=== PATIENT | male | born 1955 | race Caucasian/White ===

== ENCOUNTER → 2020-07-18 | Outpatient (CLI) | payer MEDICARE ==
--- NOTE | 2020-07-18 14:24 | CT ---
EXAMINATION TYPE: CT abdomen pelvis wo con DATE OF EXAM: 07/18/2020 COMPARISON: HISTORY: 65-year-old male R93.41, Abnormality on US, tumor in bladder-per patient CT DLP: 688.0 mGycm. Automated exposure control for dose reduction was used. TECHNIQUE: Contiguous axial scanning of the abdomen and pelvis without IV contrast. Coronal and sagit nicolás reconstructions performed. FINDINGS: Heart normal size without pericardial effusion. Right atrial and right ventricular AICD leads. Three- vessel coronary artery calcifications are present. Mild centrilobular emphysema seen. Some patchy dependent opacity in the bilateral lungs probably patc hy areas of atelectasis. Small hiatal hernia. A couple calcified granulomas in the liver. No abnormal gallbladder distention. Noncontrast appearance of the adrenal glands, spleen, and pancreas within normal limits. Left-sided nephrolithiasis with approximately 8 calculi, largest measuring 8 mm. There is severe right-sided hydronephrosis and moderate hydroureter. There is a soft tissue mass within the posterior right bladder base measuring 7.8 cm AP by 5.9 cm crab picker niocaudal by 4.6 cm wide. 7 mm calculus at the right ureteral orifice which the mass obstructs. No dilated small bowel, free fluid, or free air. No mesenteric or retroperitoneal lymphadenopathy. Mild stool burden. Redundant sigmoid colon. No pericolonic inflammatory change. Tiny fatty umbilical hernia. Multiple pelvic phleboliths. Prostate gland measures 4.9 cm wide. Prominent bladder distention. No ab normal fluid collection in the pelvis or pelvic lymphadenopathy. Bones: Mild degenerative change of the hips. Facet arthropathy mid to lower lumbar spine with grade 1 anterolisthesis L4-L5. [facility] within the lower thoracic spine. IMPRESSION: 1. Obstruction of the right ureter secondary to a large 7.8 cm bladder mass located in the right pos terior bladder base. There is resultant severe right-sided hydronephrosis. A 7 mm calculus is impacte d in the right ureteral orifice, embedded within the soft tissue. 2. Left-sided nephrolithiasis with multiple calculi measuring up to 8 mm. 3. Mild COPD in the visualized lower lungs. CAD.
== END | disposition home or self-care (01) ==
LOC: RADCTMAIN 12:38
PROVIDERS: ATTEND Urology
DX: D49.4 Neoplasm of unspecified behavior of bladder (principal); N13.2 Hydronephrosis with renal and ureteral calculous obstruction; J44.9 Chronic obstructive pulmonary disease, unspecified
CPT/HCPCS: 74176

== ENCOUNTER 2021-02-27 08:45 | Inpatient (IN) | payer MEDICARE ==
[2021-02-27] MEDS ORDERED: DEXAMETHASONE SOD PHOSPHATE 10 MG/ML 1 ML VIAL IV STA (09:22)
--- NOTE | 2021-02-27 09:26 | ED ---
General Adult HPI - General Chief complaint: Shortness of Breath Stated complaint: JAVIER Time Seen by Provider: 02/27/21 08:48 Source: patient, EMS Mode of arrival: EMS Limitations: no limitations - History of Present Illness Initial comments: Dictation was produced using [employer] dictation software. please excuse any grammatical, word or spelling errors. Chief Complaint: 66-year-old male presents with cold symptoms for 6 days History of Present Illness: Patient is a 66-year-old male. He has past medical history of bladder cancer, coronary artery disease, dyslipidemia hypertension presents to the emergency department for worsening shortness of breath, weakness and loss of taste and smell. 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 He started to get symptoms 6 days ago. Since 6 days ago symptoms have been getting worse. EMS was called. Patient was hypoxic upon initial evaluation. Patient did not receive his vaccine for coronavirus due to issues surrounding his bladder cancer treatment. The ROS documented in this emergency department record has been reviewed and confirmed by me. Those systems with pertinent positive or negative responses have been documented in the HPI. All other systems are other negative and/or noncontributory. PHYSICAL EXAM: General Impression: Alert and oriented x3, not in acute distress HEENT: Normocephalic atraumatic, extra-ocular movements intact, pupils equal and reactive to light bilaterally, mucous membranes moist. Cardiovascular: Heart regular rate and rhythm Chest: Able to complete full sentences, no retractions, no tachypnea Abdomen: abdomen soft, non-tender, non-distended, no organomegaly Musculoskeletal: Pulses present and equal in all extremities, no peripheral edema Motor: no focal deficits noted Neurological: CN II-XII grossly intact, no focal motor or sensory deficits noted Skin: Intact with no visualized rashes Psych: Normal affect and mood ED course: 66-year-old male presents with symptoms of coronavirus. He has had positive sick exposures. Vital signs upon arrival shows 82% on room air, rest of vital signs within acceptable limits. Laboratory evaluation obtained. CBC, coag panel, metabolic panel ordered. CBC, coag panel is within acceptable limits. Slight elevation of renal riddle his creatinine of 1.56. Patient's coronavirus positive. Elevated inflammatory markers. Chest x-ray shows difficult to exclude pneumonia. Click or presentation consistent with COVID-19 with hypoxic respiratory failure. Patient's oxygen levels are improved with high flow nasal cannula. Patient will be admitted patient given Decadron. Patient be admitted to Dr. Goldberg with consultation to pulmonology. EKG interpretation: Ventricular rate 75, normal sinus rhythm,. Interval 146, QRS 80, QTc 431. No AK prolongation, no QTC prolongation, no ST or T-wave changes noted. Overall, this EKG is unremarkable - Related Data Home Medications Medication Instructions Recorded Confirmed Ascorbic Acid [Vitamin C] 1,000 mg PO DAILY 02/27/21 02/27/21 Aspirin EC [Ecotrin Low Dose] 81 mg PO DAILY 02/27/21 02/27/21 Carvedilol [Coreg] 12.5 mg PO BID 02/27/21 02/27/21 Cholecalciferol [Vitamin D3 (125 125 mcg PO DAILY 02/27/21 02/27/21 Mcg = 5000 Iu)] Lisinopril [Prinivil] 10 mg PO DAILY 02/27/21 02/27/21 Multivitamins, Thera [Multivitamin 1 tab PO DAILY 02/27/21 02/27/21 (formulary)] Warfarin [Coumadin] 2.5 mg PO HS 02/27/21 02/27/21 Zinc 50 mg PO DAILY 02/27/21 02/27/21 Allergies Allergy/AdvReac Type Severity Reaction Status Date / Time No Known Allergies Allergy Verified 02/27/21 10:13 Review of Systems ROS Statement: Those systems with pertinent positive or pertinent negative responses have been documented in the HPI. ROS Other: All systems not noted in ROS Statement are negative. Past Medical History Past Medical History: Coronary Artery Disease (CAD), Cancer, Hyperlipidemia, Hypertension, Myocardial Infarction ([place]) Additional Past Medical History / Comment(s): Pt recently admitted to [facility] on 01/26/16 with STEMI he was discharged and a life vest was placed the next day. Other HX: Recent L ankle fx which healed on its own-little discomfort now. Bladder cancer Last Myocardial Infarction Date:: 01/26/16 History of Any Multi-Drug Resistant Organisms: None Reported Past Surgical History: Bladder Surgery, Heart Catheterization With Stent, Orthopedic Surgery Additional Past Surgical History / Comment(s): 01/26/16 cardiac cath with stents to LAD, past L arm fx with surgical repair. Past Anesthesia/Blood Transfusion Reactions: No Reported Reaction Date of Last Stent Placement:: 01/26/16 Past Psychological History: No Psychological Hx Reported Smoking Status: Former smoker Past Alcohol Use History: None Reported Past Drug Use History: None Reported - Past Family History Father Family Medical History: Coronary Artery Disease (CAD), Hyperlipidemia Mother Family Medical History: GERD/Reflux Additional Family Medical History / Comment(s): Mother had a serious MVA in he mid 50's and had complications with her health mostly related to that. She at the age of 78yrs. General Exam Limitations: no limitations Course Vital Signs 02/27/21 02/27/21 02/27/21 08:50 09:07 09:10 Temperature 98.4 F Pulse Rate 78 73 Respiratory 18 18 Rate Blood Pressure 135/86 O2 Sat by Pulse 82 L 92 L Oximetry 02/27/21 09:57 Temperature Pulse Rate 73 Respiratory 16 Rate Blood Pressure 120/81 O2 Sat by Pulse 95 Oximetry Medical Decision Making - Lab Data Result diagrams: 02/27/21 09:24 02/27/21 09:24 Lab Results 02/27/21 02/27/21 02/27/21 Range/Units 09:24 09:24 09:24 WBC 4.0 (3.8-10.6) k/uL RBC 5.42 (4.30-5.90) m/uL Hgb 13.9 (13.0-17.5) gm/dL Hct 42.2 (39.0-53.0) % MCV 78.0 L (80.0-100.0) fL MCH 25.6 (25.0-35.0) pg MCHC 32.9 (31.0-37.0) g/dL RDW 15.0 (11.5-15.5) % Plt Count 190 (150-450) k/uL MPV 8.9 Neutrophils % 85 % Lymphocytes % 9 % Monocytes % 5 % Eosinophils % 0 % Basophils % 0 % Neutrophils # 3.4 (1.3-7.7) k/uL Lymphocytes # 0.3 L (1.0-4.8) k/uL Monocytes # 0.2 (0-1.0) k/uL Eosinophils # 0.0 (0-0.7) k/uL Basophils # 0.0 (0-0.2) k/uL PT 11.6 (9.0-12.0) sec INR 1.1 (<1.2) APTT 28.3 (22.0-30.0) sec Sodium 141 (137-145) mmol/L Potassium 4.2 (3.5-5.1) mmol/L Chloride 105 (98-107) mmol/L Carbon Dioxide 24 (22-30) mmol/L Anion Gap 12 mmol/L BUN 64 H (9-20) mg/dL Creatinine 1.56 H (0.66-1.25) mg/dL Est GFR (CKD-EPI)AfAm 52 (>60 ml/min/1.73 sqM) Est GFR (CKD-EPI)NonAf 45 (>60 ml/min/1.73 sqM) Glucose 120 H (74-99) mg/dL Plasma Lactic Acid Damon (0.7-2.0) mmol/L Calcium 8.8 (8.4-10.2) mg/dL Magnesium 2.6 H (1.6-2.3) mg/dL Total Bilirubin 0.7 (0.2-1.3) mg/dL AST 77 H (17-59) U/L ALT 27 (4-49) U/L Alkaline Phosphatase 124 (38-126) U/L Lactate Dehydrogenase 1378 H (313-618) U/L C-Reactive Protein 5.3 H (<1.0) mg/dL Total Protein 7.5 (6.3-8.2) g/dL Albumin 3.7 (3.5-5.0) g/dL Coronavirus (PCR) (Not Detectd) 02/27/21 02/27/21 Range/Units 09:24 09:24 WBC (3.8-10.6) k/uL RBC (4.30-5.90) m/uL Hgb (13.0-17.5) gm/dL Hct (39.0-53.0) % MCV (80.0-100.0) fL MCH (25.0-35.0) pg MCHC (31.0-37.0) g/dL RDW (11.5-15.5) % Plt Count (150-450) k/uL MPV Neutrophils % % Lymphocytes % % Monocytes % % Eosinophils % % Basophils % % Neutrophils # (1.3-7.7) k/uL Lymphocytes # (1.0-4.8) k/uL Monocytes # (0-1.0) k/uL Eosinophils # (0-0.7) k/uL Basophils # (0-0.2) k/uL PT (9.0-12.0) sec INR (<1.2) APTT (22.0-30.0) sec Sodium (137-145) mmol/L Potassium (3.5-5.1) mmol/L Chloride (98-107) mmol/L Carbon Dioxide (22-30) mmol/L Anion Gap mmol/L BUN (9-20) mg/dL Creatinine (0.66-1.25) mg/dL Est GFR (CKD-EPI)AfAm (>60 ml/min/1.73 sqM) Est GFR (CKD-EPI)NonAf (>60 ml/min/1.73 sqM) Glucose (74-99) mg/dL Plasma Lactic Acid Damon 1.3 (0.7-2.0) mmol/L Calcium (8.4-10.2) mg/dL Magnesium (1.6-2.3) mg/dL Total Bilirubin (0.2-1.3) mg/dL AST (17-59) U/L ALT (4-49) U/L Alkaline Phosphatase (38-126) U/L Lactate Dehydrogenase (313-618) U/L C-Reactive Protein (<1.0) mg/dL Total Protein (6.3-8.2) g/dL Albumin (3.5-5.0) g/dL Coronavirus (PCR) Detected A (Not Detectd) Critical Care Time Critical Care Time: Yes Total Critical Care Time: 33 Disposition Clinical Impression: COVID-19 Disposition: ADMITTED IP TO THIS [facility] Condition: Critical Referrals: Shai Peña MD [Primary Care Provider] - 1-2 days
[2021-02-27 09:53] LABS: Basophils % (A) 0 %; Eosinophils % (A) 0 %; HCT 42.2 % (39.0-53.0); HGB 13.9 gm/dL (13.0-17.5); Lymphocytes # (A) 0.3 k/uL (1.0-4.8); Lymphocytes % (A) 9 %; MCH 25.6 pg (25.0-35.0); MCHC 32.9 g/dL (31.0-37.0); Mean Platelet Volume 8.9; Monocytes # (A) 0.2 k/uL (0-1.0); Monocytes % (A) 5 %; Neutrophils # (A) 3.4 k/uL (1.3-7.7); Neutrophils % (A) 85 %; Platelet Count 190 k/uL (150-450); RBC 5.42 m/uL (4.30-5.90)
[2021-02-27 09:58] LABS: Albumin 3.7 g/dL (3.5-5.0); Calcium 8.8 mg/dL (8.4-10.2); INR 1.1 (<1.2); Magnesium 2.6 mg/dL (1.6-2.3); Partial Thromboplastin Time 28.3 sec (22.0-30.0); Potassium 4.2 mmol/L (3.5-5.1); Prothrombin Time 11.6 sec (9.0-12.0); Total Bilirubin 0.7 mg/dL (0.2-1.3); Total Protein 7.5 g/dL (6.3-8.2)
--- NOTE | 2021-02-27 10:41 | XR ---
EXAMINATION TYPE: XR chest 1V portable DATE OF EXAM: 02/27/2021 COMPARISON: Chest x-ray dated 02/25/2016 HISTORY: Suspected covid 19 pneumonia, abnormal chest x-ray TECHNIQUE: Single frontal view of the chest is obtained. FINDINGS: Lung volumes are low and the patient is rotated. Question some patchy bilateral airspace d isease. There is no pleural effusion or pneumothorax seen. The cardiac silhouette size is stable, he art is enlarged, mediastinum appears widened, prominence of pulmonary artery may be indicative of pul monary artery hypertension. Interstitium is increased. There are overlying artifacts. There is a gene rator in the left pectoral region, leads are present in the right atrium and ventricle as on prior. A vineet is dense. The osseous structures are intact. IMPRESSION: Difficult to exclude pneumonia, there may be a component of pulmonary venous hypertensio n and early gestational edema, correlate
[2021-02-27 10:42] LABS: C Reactive Protein 5.3 mg/dL (<1.0)
[2021-02-27] MEDS ORDERED: ACETAMINOPHEN TAB 500 MG TAB PO STA (10:50)
[2021-02-27] MEDS ORDERED: NALOXONE 0.4 MG/ML 1 ML VIAL IV PRN (11:33)
[2021-02-27] MEDS ORDERED: ACETAMINOPHEN TAB 325 MG TAB PO PRN (11:33)
[2021-02-27] MEDS ORDERED: ONDANSETRON 4 MG/2 ML VIAL IVP PRN (11:33)
[2021-02-27] MEDS ORDERED: SODIUM CHLORIDE 0.9% 1,000 ML IV SCH (11:45)
[2021-02-27] MEDS ORDERED: ENOXAPARIN 40 MG/0.4 ML SYRINGE SQ SCH (11:45)
[2021-02-27] MEDS: SODIUM CHLORIDE 0.45% 1,000 ML IV SCH (14:47)
[2021-02-27] MEDS: ASCORBIC ACID 500 MG TAB PO SCH (14:48)
[2021-02-27] MEDS: ASPIRIN 81 MG PO SCH (14:48)
[2021-02-27] MEDS: ZINC SULFATE 220 MG CAP PO SCH (14:48)
--- NOTE | 2021-02-27 15:09 | P.HPIM ---
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 Chronic stable medical conditions include hypertension, hyperlipidemia, CAD with stent to LAD in 2016. Bladder cancer that was treated with surgery. Patient presents with 6 days of cough shortness of breath headache. Poor appetite. Tired rundown. Diarrhea that is slightly better. Loss of smell and taste. Chills. Patient has did not receive the vaccine for COVID-19. Review of systems: GEN.: Tired, loss of appetite EYES: None HEENT: Loss of smell and taste NECK: None RESPIRATORY: Short of breath CARDIOVASCULAR: None GASTROINTESTINAL: Diarrhea and that somewhat better GENITOURINARY: None MUSCULOSKELETAL: None LYMPHATICS: None HEMATOLOGICAL: None PSYCHIATRY: None NEUROLOGICAL: None Past medical history to include: Hyperlipidemia, hypertension, CAD with stent to LAD in 2016, bladder cancer treated with surgery Social history: Patient started smoking 33 years ago. Smoked started age of 13. No alcohol. 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 Family history: CAD, hyperlipidemia Physical examination: VITAL SIGNS: 98.4, 78, 18, 135/86, 82% on room air GENERAL: BMI 28, reclining in bed, awake, tired. EYES: Pupils equal. Conjunctiva normal. HEENT: External appearance of nose and ears normal, oral cavity grossly normal. NECK: JVD not raised; masses not palpable. HEART: First and second heart sounds are normal; no edema. LUNGS: Respiratory rate increased, decreased breaths on occasional crackles. ABDOMEN: Soft, nontender, liver spleen not palpable, no masses palpable. PSYCH: Alert and oriented x3; mood and affect normal. NEUROLOGICAL: Cranial nerves grossly intact; no facial asymmetry, power and sensation grossly intact. LYMPHATICS: No lymph nodes palpable in the axilla and neck INVESTIGATIONS, reviewed in the clinical context: White count 4 hemoglobin 13.9 platelets 190 lymphocytes 0.3 sodium 141 potassium 4.2 and 64 creatinine 1.56 LDH 1378 CRP 5.3 Coronavirus [PCR]: Detected EKG tracing personally reviewed by me-normal sinus rhythm. LVH. Nonspecific T- wave changes. Chest x-ray film: Bilateral infiltrates Assessment and plan: -Acute bilateral COVID 19 pneumonitis and the patient did not receive the v accine for the same. Dexamethasone 6 mg, continue Coumadin, vitamin C vitamin D zinc. Pulmonary con sulted. -Acute severe hypoxic respiratory failure from COVID 19 pneumonitis. Oxygen 15 L currently. -Acute medical debility/asthenia from COVID 19. Activity as tolerated. -Clinical dehydration from decreased oral intake IV fluids -Acute kidney injury from decreased oral intake and diarrhea. Suspect prerenal IV fluids. Renal ultrasound. Check UA. Hold Prinivil -Paroxysmal atrial fibrillation, currently sinus rhythm Telemetry -Coumadin monitoring Follow INR per pharmacy -CAD with stent to LAD in 2016 Coreg 6.25 by mouth twice a day, aspirin 81 mg daily -Ageusia and anosmia from COVID 19 Dexamethasone. Think. Vitamin C. Vitamin D. IV fluids. Follow labs. Renal ultrasound. UA. Cutback Coreg dose to 6.25 twice a day because of lower blood pressure. Care was discussed with the patient question also. Follow INR level. Given the complexity and severity of patient's condition expect the patient to be in the hospital at least for 2 overnights Past Medical History Past Medical History: Coronary Artery Disease (CAD), Cancer, Hyperlipidemia, Hypertension, Myocardial Infarction ([place]) Additional Past Medical History / Comment(s): Pt recently admitted to [facility] on 01/26/16 with STEMI he was discharged and a life vest was placed the next day. Other HX: Recent L ankle fx which healed on its own-little discomfort now. Bladder cancer Last Myocardial Infarction Date:: 01/26/16 History of Any Multi-Drug Resistant Organisms: None Reported Past Surgical History: Bladder Surgery, Heart Catheterization With Stent, Orthopedic Surgery Additional Past Surgical History / Comment(s): 01/26/16 cardiac cath with stents to LAD, past L arm fx with surgical repair. Past Anesthesia/Blood Transfusion Reactions: No Reported Reaction Date of Last Stent Placement:: 01/26/16 Past Psychological History: No Psychological Hx Reported Smoking Status: Former smoker Past Alcohol Use History: None Reported Past Drug Use History: None Reported - Past Family History Father Family Medical History: Coronary Artery Disease (CAD), Hyperlipidemia Mother Family Medical History: GERD/Reflux Additional Family Medical History / Comment(s): Mother had a serious MVA in he mid 50's and had complications with her health mostly related to that. She at the age of 78yrs. Medications and Allergies Home Medications Medication Instructions Recorded Confirmed Type Ascorbic Acid [Vitamin C] 1,000 mg PO DAILY 02/27/21 02/27/21 History Aspirin EC [Ecotrin Low Dose] 81 mg PO DAILY 02/27/21 02/27/21 History Carvedilol [Coreg] 12.5 mg PO BID 02/27/21 02/27/21 History Cholecalciferol [Vitamin D3 (125 125 mcg PO DAILY 02/27/21 02/27/21 History Mcg = 5000 Iu)] Lisinopril [Prinivil] 10 mg PO DAILY 02/27/21 02/27/21 History Multivitamins, Thera [Multivitamin 1 tab PO DAILY 02/27/21 02/27/21 History (formulary)] Warfarin [Coumadin] 2.5 mg PO HS 02/27/21 02/27/21 History Zinc 50 mg PO DAILY 02/27/21 02/27/21 History Allergies Allergy/AdvReac Type Severity Reaction Status Date / Time No Known Allergies Allergy Verified 02/27/21 10:13 Physical Exam Vitals: Vital Signs Temp Pulse Resp BP Pulse Ox 02/27/21 14:54 82 16 121/84 90 L 02/27/21 12:12 70 16 115/78 94 L 02/27/21 09:57 73 16 120/81 95 02/27/21 09:10 18 02/27/21 09:07 73 92 L 02/27/21 08:50 98.4 F 78 18 135/86 82 L Intake and Output 02/27/21 02/27/21 02/27/21 06:59 14:59 22:59 Other: Weight 88.451 kg Results CBC & Chem 7: 02/27/21 09:24 02/27/21 09:24 Labs: Abnormal Lab Results - Last 24 Hours (Table) 02/27/21 02/27/21 02/27/21 Range/Units 09:24 09:24 09:24 MCV 78.0 L (80.0-100.0) fL Lymphocytes # 0.3 L (1.0-4.8) k/uL BUN 64 H (9-20) mg/dL Creatinine 1.56 H (0.66-1.25) mg/dL Glucose 120 H (74-99) mg/dL Magnesium 2.6 H (1.6-2.3) mg/dL AST 77 H (17-59) U/L Lactate Dehydrogenase 1378 H (313-618) U/L C-Reactive Protein 5.3 H (<1.0) mg/dL Coronavirus (PCR) Detected A (Not Detectd)
--- NOTE | 2021-02-27 16:07 | US ---
EXAMINATION TYPE: US kidneys/renal and bladder DATE OF EXAM: 02/27/2021 COMPARISON: CT 07/18/2020 CLINICAL HISTORY: SONIA. Bladder cancer EXAM MEASUREMENTS: Right Kidney: 10.4 x 4.4 x 6.22 cm Left Kidney: 11.7 x 6.7 x 6.0 cm Right Kidney: hydronephrosis is mild Left Kidney: No hydronephrosis or masses seen Bladder: wnl Bilateral Jets seen: Yes Cortical medullary differentiation is maintained. Question an echogenic focus within the left kidney. No masses are identified. The urinary bladder is anechoic. Bilateral ureteral jets are seen. IMPRESSION: Mild right hydronephrosis, question left-sided nephrolithiasis
[2021-02-27] MEDS: carvediloL 6.25 MG TAB PO SCH (16:55)
[2021-02-27] MEDS: CHOLECALCIFEROL 125 MCG (5000 IU) TABLET PO SCH (16:55)
[2021-02-27 17:13] LABS: Amorphous Sediment,Urine Rare /hpf; Appearance,Urine Cloudy (Clear); Bilirubin,Urine Negative (Negative); Blood,Urine Moderate (Negative); Budding Yeast,Urine Occasional /hpf; Color,Urine Yellow; Glucose,Urine (UA) Negative (Negative); Ketones,Urine Trace (Negative); Leukocyte Esterase,Urine Moderate (Negative); Mucus,Urine Rare /hpf; Nitrite,Urine Negative (Negative); PH, Urine 5.5 (5.0-8.0); Protein,Urine 2+ (Negative); RBC,Urine 102 /hpf (0-5); Specific Gravity,Urine 1.019 (1.001-1.035); Squamous Epithelial Cell,Urine <1 /hpf (0-4); Urobilinogen,Urine <2.0 mg/dL (<2.0); WBC,Urine 47 /hpf (0-5)
[2021-02-27] MEDS ORDERED: WARFARIN 5 MG TAB PO ONE (18:00)
[2021-02-28] MEDS: carvediloL 6.25 MG TAB PO SCH (06:22)
[2021-02-28] MEDS: SODIUM CHLORIDE 0.45% 1,000 ML IV SCH ×3 (06:22→21:04)
[2021-02-28] MEDS: ASCORBIC ACID 500 MG TAB PO SCH (07:59)
[2021-02-28] MEDS: CHOLECALCIFEROL 125 MCG (5000 IU) TABLET PO SCH (07:59)
[2021-02-28] MEDS: ASPIRIN 81 MG PO SCH (07:59)
[2021-02-28] MEDS: dexAMETHasone 2 MG TAB PO SCH (07:59)
[2021-02-28] MEDS: ZINC SULFATE 220 MG CAP PO SCH (07:59)
[2021-02-28 08:15] LABS: INR 1.3 (<1.2); Prothrombin Time 13.4 sec (9.0-12.0)
[2021-02-28 08:36] LABS: C Reactive Protein 3.7 mg/dL (<1.0); Calcium 8.8 mg/dL (8.4-10.2); Potassium 4.8 mmol/L (3.5-5.1)
[2021-02-28] MEDS ORDERED: carvediloL 6.25 MG TAB PO STA (09:59)
[2021-02-28] MEDS: DILTIAZEM 125 MG in SODIUM CHLORIDE 0.9% 100 ML IV SCH (10:56)
[2021-02-28] MEDS ORDERED: FAMOTIDINE 20 MG/2 ML VIAL IV SCH (11:15)
--- NOTE | 2021-02-28 11:23 | P.PN ---
Subjective From records This is a pleasant 66-year-old patient of Dr. Peña. 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 Chronic stable medical conditions include hypertension, hyperlipidemia, CAD with stent to LAD in 2016. Bladder cancer that was treated with surgery. Patient presents with 6 days of cough shortness of breath headache. Poor appetite. Tired rundown. Diarrhea that is slightly better. Loss of smell and taste. Chills. Patient has did not receive the vaccine for COVID-19. Subjective 02/28/2021 This is a pleasant 66 years old male with multiple medical problems including hypertension, hyperlipidemia, coronary artery disease status post PCI to LAD in 2016, history of bladder cancer status post surgery He presents with respiratory symptoms and found to have Covid pneumonia and hypoxia. Also has acute kidney injury with creatinine improving down to 1.3 while he is on normal saline at 100 mL per hour. He made about 650 milliliters of urine today this morning and I asked the nurse to check a bladder scan. He has no Richards catheter. This morning also his course was complicated by A. fib and RVR, his already on warfarin. Cardizem drip was started and coordinator of evaluation consulted He has elevated LDH and C-reactive protein 1378 and 5.3. He is hypoxic at 50 L oxygen via nasal cannula. Chest x-ray showed diffuse bilateral pneumonia and his covid test positive. He has negative d-dimer test at 0.34. Renal ultrasound showing mild right hydronephrosis with left sided nephrolithiasis. Priorcalcitonin is mildly elevated at 0.11. Urinalysis is abnormal suspicious for infection however patient denies any symptoms. No suprapubic tenderness. We will keep monitoring for now and patient is not on any antibiotic. His daughter is a nurse at [facility] [facility] he wanted to be transferred however when I talked to the patient he didn't want to go to [facility] and he wanted to wait in this facility Review of systems CONSTITUTIONAL: No fever, no malaise, no fatigue. HEENT: No recent visual problems or hearing problems. Denied any sore throat. CARDIOVASCULAR: No orthopnea, PND, no palpitations, no syncope. PULMONARY: No chest wall tenderness, no hemoptysis. GASTROINTESTINAL: No diarrhea, no nausea, no vomiting, no abdominal pain. Normoactive bowel sounds. NEUROLOGICAL: No headaches, no weakness, no numbness. Active Medications Generic Name Dose Route Start Last Admin Trade Name Alcidesq PRN Reason Stop Dose Admin Acetaminophen 650 mg 02/27/21 11:33 Acetaminophen Tab 325 Mg Tab PO Q6HR PRN Mild Pain or Fever > 100.5 Ascorbic Acid 1,000 mg 02/27/21 14:00 02/28/21 07:59 Ascorbic Acid 500 Mg Tab PO 1,000 mg DAILY ARMANDO Administration Aspirin 81 mg 02/27/21 14:00 02/28/21 07:59 Aspirin 81 Mg PO 81 mg DAILY ARMANDO Administration Carvedilol 12.5 mg 02/28/21 17:30 Carvedilol 12.5 Mg Tab PO BID-W/MEALS ARMANDO Cholecalciferol 125 mcg 02/27/21 14:00 02/28/21 07:59 Cholecalciferol 125 Mcg (5000 Iu) Tablet PO 125 mcg DAILY ARMANDO Administration Dexamethasone 6 mg 02/28/21 09:00 02/28/21 07:59 Dexamethasone 2 Mg Tab PO 6 mg DAILY ARMANDO Administration Famotidine 20 mg 02/28/21 11:15 Famotidine 20 Mg/2 Ml Vial IV Q12HR ARMANDO Sodium Chloride 1,000 mls @ 100 mls/hr 02/27/21 14:15 02/28/21 06:22 Saline 0.45% IV 100 mls/hr .Q10H ARMANDO Administration Diltiazem HCl 125 mg/ Sodium 125 mls @ 5 mls/hr 02/28/21 10:30 02/28/21 10:56 Chloride IV 5 mg/hr .Q24H ARMANDO 5 mls/hr Administration 5 MG/HR Miscellaneous Information 1 each 02/27/21 14:11 Warfarin Per Pharmacy MISCELLANE DIRECTED PRN Per Protocol Protocol Naloxone HCl 0.2 mg 02/27/21 11:33 Naloxone 0.4 Mg/Ml 1 Ml Vial IV Q2M PRN Opioid Reversal Ondansetron HCl 4 mg 02/27/21 11:33 Ondansetron 4 Mg/2 Ml Vial IVP Q8HR PRN Nausea And Vomiting Warfarin Sodium 5 mg 02/28/21 18:00 Warfarin 5 Mg Tab PO 02/28/21 18:01 ONCE ONE Protocol Zinc Sulfate 220 mg 02/27/21 14:00 02/28/21 07:59 Zinc Sulfate 220 Mg Cap PO 220 mg DAILY ARMANDO Administration Objective - Vital Signs Vital signs: Vital Signs Temp 97.6 F 02/28/21 08:00 Pulse 76 02/28/21 08:00 Resp 21 02/28/21 08:00 BP 130/68 02/28/21 08:00 Pulse Ox 90 L 02/28/21 08:00 Intake & Output 02/27/21 02/28/21 02/28/21 18:59 06:59 18:59 Intake Total 600 Output Total 650 Balance -50 Weight 88.451 kg 83.5 kg Intake: Oral 600 Output: Urine 650 - Labs CBC & Chem 7: 02/27/21 09:24 02/28/21 07:42 Labs: Abnormal Lab Results - Last 24 Hours (Table) 02/27/21 02/27/21 02/27/21 Range/Units 09:24 09:24 16:50 PT (9.0-12.0) sec INR (<1.2) BUN (9-20) mg/dL Creatinine (0.66-1.25) mg/dL Glucose (74-99) mg/dL Ferritin 758.0 H (22.0-322.0) ng/mL C-Reactive Protein (<1.0) mg/dL Procalcitonin 0.11 H (0.02-0.09) ng/mL Urine Protein 2+ H (Negative) Urine Ketones Trace H (Negative) Urine Blood Moderate H (Negative) Ur Leukocyte Esterase Moderate H (Negative) Urine RBC 102 H (0-5) /hpf Urine WBC 47 H (0-5) /hpf Amorphous Sediment Rare H (None) /hpf Urine Mucus Rare H (None) /hpf Urine Yeast (Budding) Occasional H (None) /hpf 02/28/21 02/28/21 Range/Units 07:42 07:42 PT 13.4 H (9.0-12.0) sec INR 1.3 H (<1.2) BUN 63 H (9-20) mg/dL Creatinine 1.30 H (0.66-1.25) mg/dL Glucose 156 H (74-99) mg/dL Ferritin (22.0-322.0) ng/mL C-Reactive Protein 3.7 H (<1.0) mg/dL Procalcitonin (0.02-0.09) ng/mL Urine Protein (Negative) Urine Ketones (Negative) Urine Blood (Negative) Ur Leukocyte Esterase (Negative) Urine RBC (0-5) /hpf Urine WBC (0-5) /hpf Amorphous Sediment (None) /hpf Urine Mucus (None) /hpf Urine Yeast (Budding) (None) /hpf Assessment and Plan Assessment: Bilateral Covid pneumonia Acute hypoxic respiratory failure Increased inflammatory markers A. fib and RVR, he is already on warfarin Acute kidney injury, improving Abnormal urine analysis but patient is as symptomatic suspicious for asymptomatic bacteriuria Hypertension Hyperlipidemia coronary artery disease status post PCI to LAD in 2016 history of bladder cancer status post surgery Plan: This is a pleasant 66 years old male who presents with covid pneumonia and hypoxia Continue with dexamethasone Continue with vitamin C, vitamin D and zinc Pulmonary consult Cardizem drip, cardiology consult Check a bladder scan, follow-up creatinine. Labs and medication were reviewed.. Continue same treatment. Continue with symptomatic treatment. Resume home medication. Monitor lytes and vitals. DVT and GI prophylaxis. Further recommendationsas per clinical course of the patient DVT prophylaxis: Hs is on warfarin GI Prophylaxis: Pepcid Prognosis is guarded
--- NOTE | 2021-02-28 13:20 | P.CRDCN ---
History of Present Illness History of present illness: HISTORY OF PRESENTING ILLNESS This is a pleasant 66-year-old male past medical history significant for coronary artery disease status post PCI LAD in 2016, ischemic cardiomyopathy with severe LV dysfunction, paroxysmal atrial fibrillation (on coumadin), sick sinus syndrome status post dual-chamber ICD placement in 2016, hypertension, dyslipidemia, bladder cancer. He follows in the office with Dr. Cruz. We have been asked to see in consultation for atrial fibrillation with rapid ventricular response. Patient presents to the emergency room in 02/27/21 with complaints of shortness of breath, generalized tiredness/weakness, loss of taste and smell, diarrhea, cough, chills. Patient found to be COVID-19 positive. He did not receive his vaccines. On admission patient in sinus rhythm however this morning patient went atrial fibrillation with rapid ventricular response heart rates in the [id number]. At home patient takes 12.5mg BID carvedilol, started on 6.25mg BID here, no evidence of hypotension. DIAGNOSTICS EKG reveals on admission revealed normal sinus rhythm, heart 75, T wave inversions in leads III, aVF, V2, V4. Prior EKG was similar findings Telemetry tracings indicate atrial fibrillation with uncontrolled ventricular rates HR 130s Chest xray difficult to exclude pneumonia. Laboratory reviewed, CBC unremarkable, d-dimer negative, INR 1.3, sodium 139, potassium 4.8, BUN 63, sCr 1.30, COVID-19 PCr positive Current home medications include warfarin 2.5 mg daily, lisinopril 10 mg daily, carvedilol 12.5 mg twice a day, [id number] daily Most recent echocardiogram 12/2019 revealed an EF of 45%, mild concentric hypertrophy, mild mitral regurgitation, mild tricuspid regurgitation. REVIEW OF SYSTEMS At the time of my exam: CONSTITUTIONAL: +Fever +chills CARDIOVASCULAR: Positive shortness of breath Denies chest pain, orthopnea, PND or palpitations. RESPIRATORY: Positive cough GASTROINTESTINAL: Positive diarrhea Denies abdominal pain, constipation, nausea or vomiting. MUSCULOSKELETAL: Denies myalgias. NEUROLOGIC: Denies numbness, tingling, headacbe or weakness. ENDOCRINE: Denies fatigue, weight change, polydipsia or polyurina. GENITOURINARY: Denies burning, hematuria or urgency with micturation. HEMATOLOGIC: Denies history of anemia or bleeding. PHYSICAL EXAMINATION Vitals blood pressure 137/70, heart rate 120, afebrile, oxygen saturation is 94% requiring 15 L high flow nasal cannula Full physical exam not completed due to COVID-19 exposure CONSTITUTIONAL: Short of breath NEUROLOGIC EXAMINATION: Patient is awake, alert and oriented x3. ASSESSMENT Paroxysmal atrial fibrillation with rapid ventricular response -[id number] score recommends anticoagulation, patient on Coumadin COVID-19 pneumonia Acute hypoxic respiratory failure Acute kidney injury Subtherapeutic INR Coronary artery disease status post LAD in 2016 PLAN -Increase patient's beta silvana back to home dose of 12.5mg BID -Ok to start Cardizem at 5mg/hr, wean as tolerated -Continue coumadin for anticoagulation, possibly might need bridging from heparin to coumadin for therapeutic INR -Daily PT/INR -Continue home cardiac medications -Further recommendations based on clinical course Nurse Practitioner note has been reviewed, I agree with a documented findings a nd plan of care. Patient was seen and examined. Past Medical History Past Medical History: Coronary Artery Disease (CAD), Cancer, Hyperlipidemia, Hypertension, Myocardial Infarction ([place]) Additional Past Medical History / Comment(s): Pt admitted to [facility] on 01/26/16 with STEMI he was discharged and a life vest was placed the next day. Pt now has AICD/Pacer. Other HX: L ankle fx which healed on its own. Bladder cancer Last Myocardial Infarction Date:: 01/26/16 History of Any Multi-Drug Resistant Organisms: None Reported Past Surgical History: Bladder Surgery, Heart Catheterization With Stent, Orthopedic Surgery Additional Past Surgical History / Comment(s): 01/26/16 cardiac cath with stents to LAD, past L arm fx with surgical repair. Multiple Bladder surgeries at [facility] for bladder cancer treatment Past Anesthesia/Blood Transfusion Reactions: No Reported Reaction Date of Last Stent Placement:: 01/26/16 Smoking Status: Former smoker - Past Family History Father Family Medical History: Coronary Artery Disease (CAD), Hyperlipidemia Mother Family Medical History: GERD/Reflux Additional Family Medical History / Comment(s): Mother had a serious MVA in he mid 50's and had complications with her health mostly related to that. She at the age of 78yrs. Medications and Allergies Home Medications Medication Instructions Recorded Confirmed Type Ascorbic Acid [Vitamin C] 1,000 mg PO DAILY 02/27/21 02/27/21 History Aspirin EC [Ecotrin Low Dose] 81 mg PO DAILY 02/27/21 02/27/21 History Carvedilol [Coreg] 12.5 mg PO BID 02/27/21 02/27/21 History Cholecalciferol [Vitamin D3 (125 125 mcg PO DAILY 02/27/21 02/27/21 History Mcg = 5000 Iu)] Lisinopril [Prinivil] 10 mg PO DAILY 02/27/21 02/27/21 History Multivitamins, Thera [Multivitamin 1 tab PO DAILY 02/27/21 02/27/21 History (formulary)] Warfarin [Coumadin] 2.5 mg PO HS 02/27/21 02/27/21 History Zinc 50 mg PO DAILY 02/27/21 02/27/21 History Allergies Allergy/AdvReac Type Severity Reaction Status Date / Time No Known Allergies Allergy Verified 02/27/21 10:13 Physical Exam Vitals: Vital Signs Temp Pulse Pulse Resp BP BP Pulse Ox 02/28/21 12:00 97.7 F 120 H 21 137/70 95 02/28/21 08:00 97.6 F 76 21 130/68 90 L 02/28/21 07:58 87 L 02/28/21 04:00 97.6 F 67 20 140/73 96 02/28/21 02:00 64 22 02/28/21 00:00 97.7 F 64 22 131/81 88 L 02/27/21 21:51 97.6 F 67 20 152/80 90 L 02/27/21 20:00 67 20 02/27/21 19:00 69 14 117/84 91 L 02/27/21 18:00 75 16 126/79 96 02/27/21 14:54 82 16 121/84 90 L Intake and Output 02/27/21 02/28/21 02/28/21 22:59 06:59 14:59 Intake Total 120 480 Output Total 650 Balance 120 -170 Intake: Oral 120 480 Output: Urine 650 Other: Voiding Method Urinal Weight 88.451 kg 83.5 kg Results 02/27/21 09:24 02/28/21 07:42 Coagulation 02/28/21 Range/Units 07:42 PT 13.4 H (9.0-12.0) sec Comprehensive Metabolic Panel 02/28/21 Range/Units 07:42 Sodium 139 (137-145) mmol/L Potassium 4.8 (3.5-5.1) mmol/L Chloride 107 (98-107) mmol/L Carbon Dioxide 24 (22-30) mmol/L BUN 63 H (9-20) mg/dL Creatinine 1.30 H (0.66-1.25) mg/dL Glucose 156 H (74-99) mg/dL Calcium 8.8 (8.4-10.2) mg/dL Current Medications Generic Name Dose Route Start Last Admin Trade Name Freq PRN Reason Stop Dose Admin Acetaminophen 650 mg 02/27/21 11:33 Acetaminophen Tab 325 Mg Tab PO Q6HR PRN Mild Pain or Fever > 100.5 Ascorbic Acid 1,000 mg 02/27/21 14:00 02/28/21 07:59 Ascorbic Acid 500 Mg Tab PO 1,000 mg DAILY ARMANDO Administration Aspirin 81 mg 02/27/21 14:00 02/28/21 07:59 Aspirin 81 Mg PO 81 mg DAILY ARMANDO Administration Carvedilol 12.5 mg 02/28/21 17:30 Carvedilol 12.5 Mg Tab PO BID-W/MEALS ARMANDO Cholecalciferol 125 mcg 02/27/21 14:00 02/28/21 07:59 Cholecalciferol 125 Mcg (5000 Iu) Tablet PO 125 mcg DAILY ARMANDO Administration Dexamethasone 6 mg 02/28/21 09:00 02/28/21 07:59 Dexamethasone 2 Mg Tab PO 6 mg DAILY ARMANDO Administration Famotidine 20 mg 02/28/21 11:15 02/28/21 12:51 Famotidine 20 Mg/2 Ml Vial IV 20 mg Q12HR ARMANDO Administration Sodium Chloride 1,000 mls @ 100 mls/hr 02/27/21 14:15 02/28/21 11:44 Saline 0.45% IV Not Given .Q10H ARMANDO Diltiazem HCl 125 mg/ Sodium 125 mls @ 5 mls/hr 02/28/21 10:30 02/28/21 10:56 Chloride IV 5 mg/hr .Q24H ARMANDO 5 mls/hr Administration 5 MG/HR Miscellaneous Information 1 each 02/27/21 14:11 Warfarin Per Pharmacy MISCELLANE DIRECTED PRN Per Protocol Protocol Naloxone HCl 0.2 mg 02/27/21 11:33 Naloxone 0.4 Mg/Ml 1 Ml Vial IV Q2M PRN Opioid Reversal Ondansetron HCl 4 mg 11/22/21 11:33 Ondansetron 4 Mg/2 Ml Vial IVP Q8HR PRN Nausea And Vomiting Warfarin Sodium 5 mg 02/28/21 18:00 Warfarin 5 Mg Tab PO 02/28/21 18:01 ONCE ONE Protocol Zinc Sulfate 220 mg 02/27/21 14:00 02/28/21 07:59 Zinc Sulfate 220 Mg Cap PO 220 mg DAILY ARMANDO Administration Intake and Output 02/27/21 02/28/21 02/28/21 22:59 06:59 14:59 Intake Total 120 480 Output Total 650 Balance 120 -170 Intake: Oral 120 480 Output: Urine 650 Other: Voiding Method Urinal Weight 88.451 kg 83.5 kg 02/27/21 09:24 02/28/21 07:42
--- NOTE | 2021-02-28 14:39 | P.CNPUL ---
History of Present Illness Consult date: 02/28/21 Requesting physician: Renzo Goldberg Reason for consult: dyspnea, cough, hypoxemia, pneumonia, abnormal CXR/CT Chief complaint: Shortness of breath. History of present illness: Pulmonary consult dated 02/28/2021. 66-year-old male, who was seen in the emergency department, on February 27, according to 9 in the morning. The patient presented with shortness of breath. The patient has been short of breath for at least 8 days prior to admission. The patient has a history of bladder cancer, coronary disease, hyperlipidemia, and hypertension. In addition to shortness of breath, the patient complains of chest congestion, profound weakness, muscle aches, and loss of taste and smell. Apparently EMS was called and brought the patient in. He apparently was noted to have a low saturation when initially evaluated by the EMS personnel. The patient has not received vaccination against coronavirus. He did test positive. Currently, the patient is on a nonrebreather mask, was 15 L high flow nasal O2. The patient is also getting saline at 100 mL an hour, and a Cardizem drip at 5 mg an hour. Though he is on a lot of oxygen, he appears reasonably stable this time. There is no conversational dyspnea, or use of accessory muscles. White count 4, hemoglobin 13.9, hematocrit 42.2, and platelet count 190,000. D-dimer was 0.34. Sodium 139, potassium 4.8, chlorides 107, CO2 24, anion gap 8, BUN 63, and creatinine 1.30. LDH was 1378. C-reactive protein was 3.7. Calcitonin level was 0.11. Urine had 2+ protein trace ketones moderate blood moderate LE, 102 RBCs 47 WBCs but there were no bacteria. Testing for coronavirus on the was positive. Chest x-ray showed diffuse bilateral infiltrates. EKG showed evidence of atrial fibrillation. Review of Systems REVIEW OF SYSTEMS: CONSTITUTIONAL: Weakness and fatigue. NEUROLOGIC: [ Negative.] HEENT: [ Negative.] CARDIAC: [Negative.] PULMONARY: Shortness of breath, and cough. GI: [Negative.] : [Negative.] RHEUMATOLOGIC: [ Negative.] IMMUNOLOGIC: [ Negative.] ENDOCRINE: [Negative. ] DERMATOLOGIC: [Negative.] Past Medical History Past Medical History: Coronary Artery Disease (CAD), Cancer, Hyperlipidemia, Hypertension, Myocardial Infarction ([place]) Additional Past Medical History / Comment(s): Pt admitted to [facility] on 01/26/16 with STEMI he was discharged and a life vest was placed the next day. Pt now has AICD/Pacer. Other HX: L ankle fx which healed on its own. Bladder cancer Last Myocardial Infarction Date:: 01/26/16 History of Any Multi-Drug Resistant Organisms: None Reported Past Surgical History: Bladder Surgery, Heart Catheterization With Stent, Orthopedic Surgery Additional Past Surgical History / Comment(s): 01/26/16 cardiac cath with stents to LAD, past L arm fx with surgical repair. Multiple Bladder surgeries at [facility] for bladder cancer treatment Past Anesthesia/Blood Transfusion Reactions: No Reported Reaction Date of Last Stent Placement:: 01/26/16 Smoking Status: Former smoker - Past Family History Father Family Medical History: Coronary Artery Disease (CAD), Hyperlipidemia Mother Family Medical History: GERD/Reflux Additional Family Medical History / Comment(s): Mother had a serious MVA in he mid 50's and had complications with her health mostly related to that. She at the age of 78yrs. Medications and Allergies Home Medications Medication Instructions Recorded Confirmed Type Ascorbic Acid [Vitamin C] 1,000 mg PO DAILY 02/27/21 02/27/21 History Aspirin EC [Ecotrin Low Dose] 81 mg PO DAILY 02/27/21 02/27/21 History Carvedilol [Coreg] 12.5 mg PO BID 02/27/21 02/27/21 History Cholecalciferol [Vitamin D3 (125 125 mcg PO DAILY 02/27/21 02/27/21 History Mcg = 5000 Iu)] Lisinopril [Prinivil] 10 mg PO DAILY 02/27/21 02/27/21 History Multivitamins, Thera [Multivitamin 1 tab PO DAILY 02/27/21 02/27/21 History (formulary)] Warfarin [Coumadin] 2.5 mg PO HS 02/27/21 02/27/21 History Zinc 50 mg PO DAILY 02/27/21 02/27/21 History Allergies Allergy/AdvReac Type Severity Reaction Status Date / Time No Known Allergies Allergy Verified 02/27/21 10:13 Physical Exam Osteopathic Statement: *. No significant issues noted on an osteopathic structural exam other than those noted in the History and Physical/Consult. Vitals: Vital Signs Temp Pulse Pulse Resp BP BP Pulse Ox 02/28/21 12:00 97.7 F 120 H 21 137/70 95 02/28/21 08:00 97.6 F 76 21 130/68 90 L 02/28/21 07:58 87 L 02/28/21 04:00 97.6 F 67 20 140/73 96 02/28/21 02:00 64 22 02/28/21 00:00 97.7 F 64 22 131/81 88 L 02/27/21 21:51 97.6 F 67 20 152/80 90 L 02/27/21 20:00 67 20 02/27/21 19:00 69 14 117/84 91 L 02/27/21 18:00 75 16 126/79 96 02/27/21 14:54 82 16 121/84 90 L Intake and Output 02/27/21 02/28/21 02/28/21 22:59 06:59 14:59 Intake Total 120 480 Output Total 650 Balance 120 -170 Intake: Oral 120 480 Output: Urine 650 Other: Voiding Method Urinal Weight 88.451 kg 83.5 kg No acute distress, oriented 3. Currently on a nonrebreather and 15 L high flow nasal O2. No conversational dyspnea or use of accessory muscles. HEENT examination is grossly unremarkable. Neck supple. Full range of motion. No adenopathy thyromegaly or neck vein distention. Cardiovascular examination reveals an irregular rhythm and rate. S1-S2 normal. No S3 or S4. No discernible murmur noted. Heart sounds are distant. Heart ra te 120 bpm. Lungs reveal bilateral coarse rhonchi. Crackles at the bases. No wheezes. Breath sounds equal bilaterally. Saturations are in the mid 90s. Abdomen soft bowel sounds are heard. No masses or tenderness. Extremities are intact. No cyanosis clubbing or edema. Skin is without rash or lesion. Neurologic examination is brief but nonfocal. Results - Laboratory Findings CBC and BMP: 02/27/21 09:24 02/28/21 07:42 PT/INR, D-dimer PT 13.4 sec (9.0-12.0) H 02/28/21 07:42 INR 1.3 (<1.2) H 02/28/21 07:42 D-Dimer 0.34 mg/L FEU (<0.60) 02/28/21 07:42 Abnormal lab findings: Abnormal Labs 02/27/21 02/27/21 02/27/21 09:24 09:24 09:24 MCV 78.0 L Lymphocytes # 0.3 L PT INR BUN 64 H Creatinine 1.56 H Glucose 120 H Magnesium 2.6 H Ferritin 758.0 H AST 77 H Lactate Dehydrogenase 1378 H C-Reactive Protein 5.3 H Procalcitonin Urine Protein Urine Ketones Urine Blood Ur Leukocyte Esterase Urine RBC Urine WBC Amorphous Sediment Urine Mucus Urine Yeast (Budding) Coronavirus (PCR) Detected A 02/27/21 02/27/21 02/28/21 09:24 16:50 07:42 MCV Lymphocytes # PT 13.4 H INR 1.3 H BUN Creatinine Glucose Magnesium Ferritin AST Lactate Dehydrogenase C-Reactive Protein Procalcitonin 0.11 H Urine Protein 2+ H Urine Ketones Trace H Urine Blood Moderate H Ur Leukocyte Esterase Moderate H Urine RBC 102 H Urine WBC 47 H Amorphous Sediment Rare H Urine Mucus Rare H Urine Yeast (Budding) Occasional H Coronavirus (PCR) 02/28/21 07:42 MCV Lymphocytes # PT INR BUN 63 H Creatinine 1.30 H Glucose 156 H Magnesium Ferritin AST Lactate Dehydrogenase C-Reactive Protein 3.7 H Procalcitonin Urine Protein Urine Ketones Urine Blood Ur Leukocyte Esterase Urine RBC Urine WBC Amorphous Sediment Urine Mucus Urine Yeast (Budding) Coronavirus (PCR) - Diagnostic Findings Chest x-ray: image reviewed Assessment and Plan Assessment: Acute hypoxemic respiratory failure secondary to coronavirus associated pneumonia. Paroxysmal atrial fibrillation with RVR, currently on Cardizem drip. History of coronary artery disease, status post stents. History of hyperlipidemia. History of hypertension. Prior history of myocardial infarction. History of bladder cancer. Plan: Plan dated 02/28/2021. Currently, the patient is ready on vitamin C, vitamin D3, and zinc. The patient's currently also on Coumadin, for his chronic atrial fibrillation. The patient's getting Decadron 6 mg a day. The patient is not a candidate for REM, given the fact that his symptoms in the present for more than 7 days, and his oxygen requirements exceed 6 L. He would be a candidate for [place]. We will continue to follow make recommendations where appropriate. Prognosis is guarded. Hopefully, the patient will not deteriorate. I will go ahead and order an N-terminal proBNP. Time with Patient: Greater than 30
[2021-02-28] MEDS: guaiFENesin 600 MG TABLET.ER PO SCH ×2 (14:50→21:03)
[2021-02-28] MEDS: carvediloL 12.5 MG TAB PO SCH (17:03)
[2021-02-28] MEDS ORDERED: WARFARIN 5 MG TAB PO ONE (18:00)
[2021-02-28] MEDS: FAMOTIDINE 20 MG TAB PO SCH (21:03)
[2021-03-01] MEDS: SODIUM CHLORIDE 0.45% 1,000 ML IV SCH ×3 (04:47→23:41)
[2021-03-01] MEDS: DILTIAZEM 125 MG in SODIUM CHLORIDE 0.9% 100 ML IV SCH (04:49)
[2021-03-01] MEDS: carvediloL 12.5 MG TAB PO SCH ×2 (06:31→16:56)
[2021-03-01 06:43] LABS: Basophils % (A) 0 %; Eosinophils % (A) 0 %; HCT 39.1 % (39.0-53.0); HGB 12.7 gm/dL (13.0-17.5); Lymphocytes # (A) 0.2 k/uL (1.0-4.8); Lymphocytes % (A) 2 %; MCH 25.6 pg (25.0-35.0); MCHC 32.5 g/dL (31.0-37.0); MCV 78.8 fL (80.0-100.0); Mean Platelet Volume 8.7; Monocytes # (A) 0.4 k/uL (0-1.0); Monocytes % (A) 4 %; Neutrophils # (A) 8.4 k/uL (1.3-7.7); Neutrophils % (A) 93 %; Platelet Count 245 k/uL (150-450); RBC 4.96 m/uL (4.30-5.90); RDW 15.1 % (11.5-15.5)
[2021-03-01 06:52] LABS: INR 3.1 (<1.2); Prothrombin Time 30.2 sec (9.0-12.0)
[2021-03-01 06:55] LABS: African American GFR (CKD) 72 (>60 ml/min/1.73 sqM); Anion Gap 10 mmol/L; Blood Urea Nitrogen 56 mg/dL (9-20); Calcium 8.2 mg/dL (8.4-10.2); Carbon Dioxide 22 mmol/L (22-30); Chloride 108 mmol/L (98-107); Glucose 131 mg/dL (74-99); LDH 2072 U/L (313-618); Magnesium 2.6 mg/dL (1.6-2.3); Non-African American GFR(CKD) 63 (>60 ml/min/1.73 sqM); Potassium 3.9 mmol/L (3.5-5.1); Sodium 140 mmol/L (137-145)
[2021-03-01] MEDS: ZINC SULFATE 220 MG CAP PO SCH (08:09)
[2021-03-01] MEDS: ASCORBIC ACID 500 MG TAB PO SCH (08:09)
[2021-03-01] MEDS: guaiFENesin 600 MG TABLET.ER PO SCH ×2 (08:09→21:16)
[2021-03-01] MEDS: ASPIRIN 81 MG PO SCH (08:09)
[2021-03-01] MEDS: FAMOTIDINE 20 MG TAB PO SCH ×2 (08:09→21:16)
[2021-03-01] MEDS: CHOLECALCIFEROL 125 MCG (5000 IU) TABLET PO SCH (08:09)
[2021-03-01] MEDS: dexAMETHasone 2 MG TAB PO SCH (08:09)
[2021-03-01 08:11] LABS: C Reactive Protein 1.6 mg/dL (<1.0)
--- NOTE | 2021-03-01 11:19 | P.PN ---
Subjective This is a pleasant 66-year-old male past medical history significant for coronary artery disease status post PCI LAD in 2016, ischemic cardiomyopathy with severe LV dysfunction, paroxysmal atrial fibrillation (on coumadin), sick sinus syndrome status post dual-chamber ICD placement in 2016, hypertension, dyslipidemia, bladder cancer. He follows in the office with Dr. Cruz. We have been asked to see in consultation for atrial fibrillation with rapid ventricular response. Patient presents to the emergency room in 02/27/21 with complaints of shortness of breath, generalized tiredness/weakness, loss of taste and smell, diarrhea, cough, chills. Patient found to be COVID-19 positive. He did not receive his vaccines. On admission patient in sinus rhythm however this morning patient went atrial fibrillation with rapid ventricular response heart rates in the [id number]. At home patient takes 12.5mg BID carvedilol, started on 6.25mg BID here, no evidence of hypotension. DIAGNOSTICS Current home medications include warfarin 2.5 mg daily, lisinopril 10 mg daily, carvedilol 12.5 mg twice a day, [id number] daily Most recent echocardiogram 12/2019 revealed an EF of 45%, mild concentric hypertrophy, mild mitral regurgitation, mild tricuspid regurgitation. 03/01/21: Patient seen at bedside, no acute distress. He is still requiring high flow nasal cannula at 15L. Telemetry tracings indicate overnight atrial fibrillation with controlled ventricular rates. He converted to sinus mechanism this morning, IV Cardizem has been stopped. He is currently maintained on aspirin 81 mg daily, carvedilol 25 mg twice a day, Coumadin. Labs revealed INR 2.1, sodium 140, potassium 3.9, BUN 56, serum creatinine 1.1, magnesium 2.6, tsh within normal limits. PHYSICAL EXAMINATION Vitals blood pressure 108/76, heart rate 80, afebrile, oxygen saturation is >92% requiring high flow nasal cannula 15L Full physical exam not completed due to COVID-19 exposure CONSTITUTIONAL: Short of breath NEUROLOGIC EXAMINATION: Patient is awake, alert and oriented x3. ASSESSMENT Paroxysmal atrial fibrillation with rapid ventricular response -[id number] sco re recommends anticoagulation, patient on Coumadin COVID-19 pneumonia Acute hypoxic respiratory failure Acute kidney injury Subtherapeutic INR Coronary artery disease status post LAD in 2016 PLAN -Continue patient's beta silvana back to home dose of 12.5mg BID -Continue coumadin for anticoagulation -Daily PT/INR -Continue home cardiac medications -We will follow the patient as needed. Please reach out with any further questions or concerns. -Patient to follow up outpatient with Dr. Cruz. Nurse Practitioner note has been reviewed, I agree with a documented findings and plan of care. Patient was seen and examined. Objective - Vital Signs Vital signs: Vital Signs Temp 97.7 F 02/28/21 12:00 Pulse 120 H 02/28/21 12:00 Resp 21 02/28/21 12:00 BP 137/70 02/28/21 12:00 Pulse Ox 95 02/28/21 12:00 Intake & Output 02/27/21 02/28/21 02/28/21 18:59 06:59 18:59 Intake Total 600 Output Total 650 Balance -50 Weight 88.451 kg 83.5 kg Intake: Oral 600 Output: Urine 650 Other: Voiding Method Urinal - Labs CBC & Chem 7: 03/01/21 06:05 03/01/21 06:05 Labs: Abnormal Lab Results - Last 24 Hours (Table) 02/27/21 02/27/21 02/27/21 Range/Units 09:24 09:24 16:50 PT (9.0-12.0) sec INR (<1.2) BUN (9-20) mg/dL Creatinine (0.66-1.25) mg/dL Glucose (74-99) mg/dL Ferritin 758.0 H (22.0-322.0) ng/mL C-Reactive Protein (<1.0) mg/dL Procalcitonin 0.11 H (0.02-0.09) ng/mL Urine Protein 2+ H (Negative) Urine Ketones Trace H (Negative) Urine Blood Moderate H (Negative) Ur Leukocyte Esterase Moderate H (Negative) Urine RBC 102 H (0-5) /hpf Urine WBC 47 H (0-5) /hpf Amorphous Sediment Rare H (None) /hpf Urine Mucus Rare H (None) /hpf Urine Yeast (Budding) Occasional H (None) /hpf 02/28/21 02/28/21 Range/Units 07:42 07:42 PT 13.4 H (9.0-12.0) sec INR 1.3 H (<1.2) BUN 63 H (9-20) mg/dL Creatinine 1.30 H (0.66-1.25) mg/dL Glucose 156 H (74-99) mg/dL Ferritin (22.0-322.0) ng/mL C-Reactive Protein 3.7 H (<1.0) mg/dL Procalcitonin (0.02-0.09) ng/mL Urine Protein (Negative) Urine Ketones (Negative) Urine Blood (Negative) Ur Leukocyte Esterase (Negative) Urine RBC (0-5) /hpf Urine WBC (0-5) /hpf Amorphous Sediment (None) /hpf Urine Mucus (None) /hpf Urine Yeast (Budding) (None) /hpf Microbiology - Last 24 Hours (Table) 02/27/21 09:10 Blood Culture - Preliminary Blood No Growth after 24 hours 02/27/21 09:24 Blood Culture - Preliminary Blood No Growth after 24 hours
--- NOTE | 2021-03-01 16:21 | P.PN ---
Subjective Progress Note Date: 03/01/21 Principal diagnosis: Shortness of breath. Pulmonary consult dated 02/28/2021. 66-year-old male, who was seen in the emergency department, on February 27, according to 9 in the morning. The patient presented with shortness of breath. The patient has been short of breath for at least 8 days prior to admission. The patient has a history of bladder cancer, coronary disease, hyperlipidemia, and hypertension. In addition to shortness of breath, the patient complains of chest congestion, profound weakness, muscle aches, and loss of taste and smell. Apparently EMS was called and brought the patient in. He apparently was noted to have a low saturation when initially evaluated by the EMS personnel. The patient has not received vaccination against coronavirus. He did test positive. Currently, the patient is on a nonrebreather mask, was 15 L high flow nasal O2. The patient is also getting saline at 100 mL an hour, and a Cardizem drip at 5 mg an hour. Though he is on a lot of oxygen, he appears reasonably stable this time. There is no conversational dyspnea, or use of accessory muscles. White count 4, hemoglobin 13.9, hematocrit 42.2, and platelet count 190,000. D-dimer was 0.34. Sodium 139, potassium 4.8, chlorides 107, CO2 24, anion gap 8, BUN 63, and creatinine 1.30. LDH was 1378. C-reactive protein was 3.7. Calcitonin level was 0.11. Urine had 2+ protein trace ketones moderate blood moderate LE, 102 RBCs 47 WBCs but there were no bacteria. Testing for coronavirus on the was positive. Chest x-ray showed diffuse bilateral infiltrates. EKG showed evidence of atrial fibrillation. Progress note dated 03/01/2021. 66-year-old male initially seen in the emergency department on February 27, for complaints of increasing shortness of breath. The patient has a history of bladder cancer, coronary disease, hyperlipidemia and hypertension. The patient was tested for coronavirus and was found to be positive on the . Currently, he's on 15 L high flow nasal cannula, and a nonrebreather mask. His blood pressure is 125/71 with a mean of 89. His heart rate 60 and his respiratory rate 19-20 breaths per minute. White count 9, hemoglobin 12.7, hematocrit 39.1, and platelet count normal. PT 30.2 with an INR 3.1. Sodium 140, potassium 3.9, chlorides 108, CO2 22, anion gap 10, BUN 56, and creatinine 1.19. Pro- calcitonin level was 0.07. Objective - Vital Signs Vital signs: Vital Signs Temp 97.6 F 03/01/21 12:00 Pulse 60 03/01/21 12:00 Resp 19 03/01/21 12:00 BP 125/71 03/01/21 12:00 Pulse Ox 95 03/01/21 12:00 Intake & Output 02/28/21 03/01/21 03/01/21 18:59 06:59 18:59 Intake Total 89.417 22.25 Output Total 250 600 Balance -250 -510.583 22.25 Weight 83 kg Intake: Intake, IV Titration 89.417 22.25 Amount Diltiazem 125 mg In 89.417 22.25 Sodium Chloride 0.9% 100 ml @ 5 MG/HR 5 mls/hr IV .Q24H [facility] Rx#:[id number] Output: Urine 250 600 Other: Voiding Method Urinal Urinal # Voids 0 - Exam No acute distress, oriented 3. Currently on a nonrebreather and 15 L high flow nasal O2. No conversational dyspnea or use of accessory muscles. HEENT examination is grossly unremarkable. Neck supple. Full range of motion. No adenopathy thyromegaly or neck vein distention. Cardiovascular examination reveals an irregular rhythm and rate. S1-S2 normal. No S3 or S4. No discernible murmur noted. Heart sounds are distant. Heart rate 69 bpm. Lungs reveal bilateral coarse rhonchi. Crackles at the bases. No wheezes. Breath sounds equal bilaterally. Saturations are in the mid 90s. Abdomen soft bowel sounds are heard. No masses or tenderness. Extremities are intact. No cyanosis clubbing or edema. Skin is without rash or lesion. Neurologic examination is brief but nonfocal. - Labs CBC & Chem 7: 03/01/21 06:05 03/01/21 06:05 Labs: Abnormal Lab Results - Last 24 Hours (Table) 03/01/21 03/01/21 03/01/21 Range/Units 06:05 06:05 06:05 Hgb 12.7 L (13.0-17.5) gm/dL MCV 78.8 L (80.0-100.0) fL Neutrophils # 8.4 H (1.3-7.7) k/uL Lymphocytes # 0.2 L (1.0-4.8) k/uL PT 30.2 H (9.0-12.0) sec INR 3.1 H (<1.2) Chloride 108 H (98-107) mmol/L BUN 56 H (9-20) mg/dL Glucose 131 H (74-99) mg/dL Calcium 8.2 L (8.4-10.2) mg/dL Magnesium 2.6 H (1.6-2.3) mg/dL Lactate Dehydrogenase 2072 H (313-618) U/L C-Reactive Protein 1.6 H (<1.0) mg/dL Microbiology - Last 24 Hours (Table) 02/27/21 09:10 Blood Culture - Preliminary Blood No Growth after 48 hours 02/27/21 09:24 Blood Culture - Preliminary Blood No Growth after 48 hours Assessment and Plan Assessment: Acute hypoxemic respiratory failure secondary to coronavirus associated pneumonia. Paroxysmal atrial fibrillation with RVR. History of coronary artery disease, status post stents. History of hyperlipidemia. History of hypertension. Prior history of myocardial infarction. History of bladder cancer. Plan: Plan dated 02/28/2021. Currently, the patient is ready on vitamin C, vitamin D3, and zinc. The patient's currently also on Coumadin, for his chronic atrial fibrillation. The patient's getting Decadron 6 mg a day. The patient is not a candidate for REM, given the fact that his symptoms in the present for more than 7 days, and his oxygen requirements exceed 6 L. He would be a candidate for [place]. We will continue to follow make recommendations where appropriate. Prognosis is guarded. Hopefully, the patient will not deteriorate. I will go ahead and order an N-terminal proBNP. Plan dated 03/01/2021. The patient remains on vitamin C, vitamin D3, and zinc. In addition, the patient is on Coumadin for his chronic atrial fibrillation. The patient is also getting Decadron 6 mg a day. Clinically, the patient is about the same as he was yesterday. He remains on high flow nasal O2, as well as a nonrebreather mask. Additional recommendations and suggestions are forthcoming. The patient's pro-calcitonin level was normal. No additional recommendations are made. Will continue to follow make recommendations where appropriate. Time with Patient: Less than 30
--- NOTE | 2021-03-01 17:10 | P.PN ---
Subjective From records This is a pleasant 66-year-old patient of Dr. Peña. Doctor Of Audiology Dr. Doyle. Chronic stable medical conditions include hypertension, hyperlipidemia, CAD with stent to LAD in 2016. Bladder cancer that was treated with surgery. Patient presents with 6 days of cough shortness of breath headache. Poor appetite. Tired rundown. Diarrhea that is slightly better. Loss of smell and taste. Chills. Patient has did not receive the vaccine for COVID-19. Subjective 02/28/2021 This is a pleasant 66 years old male with multiple medical problems including hypertension, hyperlipidemia, coronary artery disease status post PCI to LAD in 2016, history of bladder cancer status post surgery He presents with respiratory symptoms and found to have Covid pneumonia and hypoxia. Also has acute kidney injury with creatinine improving down to 1.3 while he is on normal saline at 100 mL per hour. He made about 650 milliliters of urine today this morning and I asked the nurse to check a bladder scan. He has no Richards catheter. This morning also his course was complicated by A. fib and RVR, his already on warfarin. Cardizem drip was started and manager customs consulted He has elevated LDH and C-reactive protein 1378 and 5.3. He is hypoxic at 50 L oxygen via nasal cannula. Chest x-ray showed diffuse bilateral pneumonia and his covid test positive. He has negative d-dimer test at 0.34. Renal ultrasound showing mild right hydronephrosis with left sided nephrolithiasis. Priorcalcitonin is mildly elevated at 0.11. Urinalysis is abnormal suspicious for infection however patient denies any symptoms. No suprapubic tenderness. We will keep monitoring for now and patient is not on any antibiotic. His daughter is a nurse at [facility] he wanted to be transferred however when I talked to the patient he didn't want to go to [facility] and he wanted to wait in this facility 03/01/2021 Patient clinically looks same as of yesterday with same dyspnea. No other significant symptoms. He denies any urinary symptoms, no dysuria or urgency or discomfort or dribbling. He still on 15 L oxygen via nasal cannula. Yesterday he developed A. fib and RVR and started with Cardizem drip however heart rate is 2 mg of coumadine only tonight. Doctor Of Audiology recommended to continue with the same dose of metoprolol 12.5. Also manager customs signed off the case. Creatinine improved down to 1.3 compared to baseline of around 0.9. Inflammatory markers are elevated LDH 2072, C-reactive protein 1.6. ProBNP is 1380, negative forcalcitonin 0.07. TSH is 1.7 is normal. We reordered urine analysis and bladder scan but doubt the patient has any urinary tract infection. No antibiotics. He kept on dexamethasone, vitamin C, D and zinc. Normal saline can be stopped Objective - Vital Signs Vital signs: Vital Signs Temp 97.6 F 03/01/21 12:00 Pulse 60 03/01/21 12:00 Resp 19 03/01/21 12:00 BP 125/71 03/01/21 12:00 Pulse Ox 95 03/01/21 12:00 Intake & Output 02/28/21 03/01/21 03/01/21 18:59 06:59 18:59 Intake Total 89.417 22.25 Output Total 250 600 Balance -250 -510.583 22.25 Weight 83 kg Intake: Intake, IV Titration 89.417 22.25 Amount Diltiazem 125 mg In 89.417 22.25 Sodium Chloride 0.9% 100 ml @ 5 MG/HR 5 mls/hr IV .Q24H [facility] Rx#:[id number] Output: Urine 250 600 Other: Voiding Method Urinal Urinal # Voids 0 - Exam GENERAL: The patient is alert and oriented x3, not in any acute distress. Well developed, well nourished. HEENT: Pupils are round and equally reacting to light. EOMI. No scleral icterus. No conjunctival pallor. Normocephalic, atraumatic. No pharyngeal erythema. No thyromegaly. CARDIOVASCULAR: S1 and S2 present. No murmurs, rubs, or gallops. PULMONARY: Chest is clear to auscultation, no wheezing or crackles. ABDOMEN: Soft, nontender, nondistended, normoactive bowel sounds. No palpable organomegaly. MUSCULOSKELETAL: No joint swelling or deformity. EXTREMITIES: No cyanosis, clubbing, or pedal edema. NEUROLOGICAL: Gross neurological examination did not reveal any focal deficits. SKIN: No rashes. no petechiae. - Labs CBC & Chem 7: 03/01/21 06:05 03/01/21 06:05 Labs: Abnormal Lab Results - Last 24 Hours (Table) 03/01/21 03/01/21 03/01/21 Range/Units 06:05 06:05 06:05 Hgb 12.7 L (13.0-17.5) gm/dL MCV 78.8 L (80.0-100.0) fL Neutrophils # 8.4 H (1.3-7.7) k/uL Lymphocytes # 0.2 L (1.0-4.8) k/uL PT 30.2 H (9.0-12.0) sec INR 3.1 H (<1.2) Chloride 108 H (98-107) mmol/L BUN 56 H (9-20) mg/dL Glucose 131 H (74-99) mg/dL Calcium 8.2 L (8.4-10.2) mg/dL Magnesium 2.6 H (1.6-2.3) mg/dL Lactate Dehydrogenase 2072 H (313-618) U/L C-Reactive Protein 1.6 H (<1.0) mg/dL Microbiology - Last 24 Hours (Table) 02/27/21 09:10 Blood Culture - Preliminary Blood No Growth after 48 hours 02/27/21 09:24 Blood Culture - Preliminary Blood No Growth after 48 hours Assessment and Plan Assessment: Bilateral Covid pneumonia Acute hypoxic respiratory failure Increased inflammatory markers A. fib and RVR, he is already on warfarin. Heart rate is controlled now Acute kidney injury, improving Abnormal urine analysis but patient is as symptomatic suspicious for asymptomatic bacteriuria Hypertension Hyperlipidemia coronary artery disease status post PCI to LAD in 2016 history of bladder cancer status post surgery Plan: This is a pleasant 66 years old male who presents with covid pneumonia and hy poxia Continue with dexamethasone Continue with vitamin C, vitamin D and zinc Pulmonary consult Cardizem ant, cardiology consult continue with metoprolol and warfarin. Follow-up INR bladder scan Labs and medication were reviewed.. Continue same treatment. Continue with symptomatic treatment. Resume home medication. Monitor lytes and vitals. DVT and GI prophylaxis. Further recommendations as per clinical course of the patient DVT prophylaxis: He is on warfarin GI Prophylaxis: Pepcid Prognosis is guarded
[2021-03-01] MEDS ORDERED: WARFARIN 2 MG TAB PO ONE (18:00)
[2021-03-02] MEDS ORDERED: ALPRAZolam 0.5 MG TAB PO STA (02:09)
[2021-03-02 02:13] LABS: Glucose,Whole Blood 121 mg/dL (75-99)
--- NOTE | 2021-03-02 02:30 | P.EN ---
A- team: Indication: Hypoxemia Arrived on Scene to find: Patient in moderate respiratory distress, SpO2 82% on 15 L nonrebreather. Patient seen and examined at bedside. The patient reports feeling short of breath and fatigued. Vital signs reviewed General: Ill-appearing male, mild respiratory distress, [appears at stated age] Derm: [warm], [dry] Head: [atraumatic], [normocephalic], [symmetric] Eyes: [EOMI], [no lid lag], [anicteric sclera] Mouth: [no lip lesion], [mucus membranes moist] Cardiovascular: [S1S2 reg], [no murmur], [positive posterior tibial pulse bilateral], Lungs: Scattered bilateral rhonchi and rales, no wheezing, [no accessory muscle use] Abdominal: [soft], [ nontender to palpation], [no guarding], [no appreciable organomegaly] Ext: [no gross muscle atrophy], [no edema], [no contractures] Neuro: [no focal neuro deficits] Psych: Somewhat agitated, oriented only to person and place Assessment: Hypoxic respiratory failure secondary to COVID-19 pneumonia Plan: BiPAP ordered Close monitoring advised with low threshold for intubation Xanax 0.5 mg ordered Notified: Primary care notified by RN A Total of 25 minutes of critical care time was spent on the complex care of this patient.
[2021-03-02] MEDS ORDERED: ALPRAZolam 0.5 MG TAB PO PRN (05:52)
[2021-03-02] MEDS: carvediloL 12.5 MG TAB PO SCH ×2 (05:57→17:44)
[2021-03-02] MEDS ORDERED: LORazepam 2 MG/ML INJ IV PRN (07:37)
[2021-03-02 07:55] LABS: Allen Test Performed? Yes
[2021-03-02] MEDS ORDERED: HUMAN PROTHROMBIN COMPLX 500 UNIT/16 ML VIAL IV ONE (08:00)
[2021-03-02 08:33] LABS: Glucose,Whole Blood 145 mg/dL (75-99)
--- NOTE | 2021-03-02 08:34 | XR ---
EXAMINATION TYPE: XR chest 1V portable DATE OF EXAM: 03/02/2021 CLINICAL HISTORY: Difficulty breathing and covid progress study. Worsening hypoxia. TECHNIQUE: Single AP portable semiupright view of the chest is obtained. COMPARISON: Chest x-ray from 3 days earlier and older studies FINDINGS: There is cardiomegaly with dual lead pacemaker/defibrillator redemonstrated. Persistent lo w lung volumes and chronic parenchymal changes with bilateral multifocal opacities. Increasing opacit ies in the right lung base and periphery right lung noted. Osseous structures are intact. IMPRESSION: Low lung volumes and cardiomegaly with bilateral multifocal opacities, worsening findings in the lateral right lung and right basilar region noted. Findings consistent with coivd-19 infectio n progression.
[2021-03-02] MEDS: CHOLECALCIFEROL 125 MCG (5000 IU) TABLET PO SCH (08:39)
[2021-03-02] MEDS: ASCORBIC ACID 500 MG TAB PO SCH (08:39)
[2021-03-02] MEDS: ZINC SULFATE 220 MG CAP PO SCH (08:40)
[2021-03-02] MEDS: guaiFENesin 600 MG TABLET.ER PO SCH (08:40)
[2021-03-02 08:47] LABS: ABG HCO3 22 mmol/L (21-25); ABG Oxygen Saturation 94.8 % (94-97); ABG PCO2 32 mmHg (35-45); ABG PH 7.45 (7.35-7.45); ABG PO2 71 mmHg (83-108); ABG TCO2 23 mmol/L (19-24)
[2021-03-02] MEDS: DEXMEDETOMIDINE/0.9% NACL(PMX) 400 MCG in EMPTY BAG 1 BAG IV SCH ×2 (09:56→17:43)
[2021-03-02] MEDS: DEXAMETHASONE SOD PHOSPHATE 10 MG/ML 1 ML VIAL IVP SCH (09:58)
[2021-03-02] MEDS: FAMOTIDINE 20 MG TAB PO SCH ×2 (09:58→20:07)
[2021-03-02 10:14] LABS: Prothrombin Time >130.0 sec (9.0-12.0)
[2021-03-02 10:15] LABS: INR >10.0 (<1.2)
[2021-03-02] MEDS ORDERED: Kcentra PER PHARMACY 1 EACH MISC MISCELLANE SCH (10:30)
[2021-03-02] MEDS ORDERED: EMPTY BAG 1 BAG with HUMAN PROTHROMBIN COMPLX 1,629 UNIT IV ONE (11:00)
[2021-03-02] MEDS ORDERED: PHYTONADIONE 10 MG in SODIUM CHLORIDE 0.9% 50 ML IVPB ONE (11:00)
--- NOTE | 2021-03-02 12:03 | P.PN ---
Subjective Progress Note Date: 03/02/21 Principal diagnosis: Shortness of breath. Pulmonary consult dated 02/28/2021. 66-year-old male, who was seen in the emergency department, on February 27, according to 9 in the morning. The patient presented with shortness of breath. The patient has been short of breath for at least 8 days prior to admission. The patient has a history of bladder cancer, coronary disease, hyperlipidemia, and hypertension. In addition to shortness of breath, the patient complains of chest congestion, profound weakness, muscle aches, and loss of taste and smell. Apparently EMS was called and brought the patient in. He apparently was noted to have a low saturation when initially evaluated by the EMS personnel. The patient has not received vaccination against coronavirus. He did test positive. Currently, the patient is on a nonrebreather mask, was 15 L high flow nasal O2. The patient is also getting saline at 100 mL an hour, and a Cardizem drip at 5 mg an hour. Though he is on a lot of oxygen, he appears reasonably stable this time. There is no conversational dyspnea, or use of accessory muscles. White count 4, hemoglobin 13.9, hematocrit 42.2, and platelet count 190,000. D-dimer was 0.34. Sodium 139, potassium 4.8, chlorides 107, CO2 24, anion gap 8, BUN 63, and creatinine 1.30. LDH was 1378. C-reactive protein was 3.7. Calcitonin level was 0.11. Urine had 2+ protein trace ketones moderate blood moderate LE, 102 RBCs 47 WBCs but there were no bacteria. Testing for coronavirus on the was positive. Chest x-ray showed diffuse bilateral infiltrates. EKG showed evidence of atrial fibrillation. Progress note dated 03/01/2021. 66-year-old male initially seen in the emergency department on February 27, for complaints of increasing shortness of breath. The patient has a history of bladder cancer, coronary disease, hyperlipidemia and hypertension. The patient was tested for coronavirus and was found to be positive on the . Currently, he's on 15 L high flow nasal cannula, and a nonrebreather mask. His blood pressure is 125/71 with a mean of 89. His heart rate 60 and his respiratory rate 19-20 breaths per minute. White count 9, hemoglobin 12.7, hematocrit 39.1, and platelet count normal. PT 30.2 with an INR 3.1. Sodium 140, potassium 3.9, chlorides 108, CO2 22, anion gap 10, BUN 56, and creatinine 1.19. Pro- calcitonin level was 0.07. Progress note dated 03/02/2021. 66-year-old male initially seen in the emergency department on February 27. He was seen on the floor yesterday, and apparently this morning, had an episode of worsening hypoxemic respiratory failure. He apparently was pulling off his BiPAP device, and we decided to transfer him to the intensive care unit. Currently, he is on BiPAP at 12/6 and 100%. He is also on saline at 75 mL an hour. A blood gas shows a pO2 of 71, pCO2 32, and a pH is 7.45. The patient will be placed on Precedex for sedation, and we will change any oral medications to IV. We'll check a d-dimer. In addition, we will discontinue all benzodiazepines. PTT is greater than 130, INR is greater than 10, and d-dimer is 31.39. We will give the patient some for factor prothrombin concentrate, as well as vitamin K. Chest x-ray shows bilateral multifocal opacities, which have worsened. Lung volumes are low. There is also cardiomegaly. Objective - Vital Signs Vital signs: Vital Signs Temp 97.4 F L 03/02/21 08:27 Pulse 92 03/02/21 10:30 Resp 39 H 03/02/21 10:30 BP 127/94 03/02/21 10:30 Pulse Ox 93 L 03/02/21 10:30 Intake & Output 03/01/21 03/02/21 03/02/21 18:59 06:59 18:59 Intake Total 22.25 153.389 Output Total 50 900 30 Balance -27.75 -900 123.389 Weight 82.8 kg Intake: IV 150 Sodium Chloride 0.45% 1, 150 000 ml @ 75 mls/hr IV . [id number] [facility]O Rx#:[id number] Intake, IV Titration 22.25 3.389 Amount Dexmedetomidine/0.9% NaCl 3.389 (Pmx) 400 mcg In Empty Bag 1 bag @ 0.2 MCG/KG/HR 4.15 mls/hr IV .Q24H ARM[facility]O Rx#:[id number] Diltiazem 125 mg In 22.25 Sodium Chloride 0.9% 100 ml @ 5 MG/HR 5 mls/hr IV .Q24H [facility] Rx#:[id number] Output: Urine 900 30 Post Void Residual 50 Other: Voiding Method Urinal # Voids 0 1 - Exam No acute distress, on Precedex, with BiPAP mask in place. He seems much more calm at this time. HEENT examination is grossly unremarkable. Neck supple. Full range of motion. No adenopathy thyromegaly or neck vein distention. Cardiovascular examination reveals an irregular rhythm and rate. S1-S2 normal. No S3 or S4. No discernible murmur noted. Heart sounds are distant. Heart rate 92 bpm. Lungs reveal bilateral coarse rhonchi. Crackles at the bases. No wheezes. Breath sounds equal bilaterally. Saturations are in the low 90s. Abdomen soft bowel sounds are heard. No masses or tenderness. Extremities are intact. No cyanosis clubbing or edema. Skin is without rash or lesion. Neurologic examination is brief but nonfocal. - Labs CBC & Chem 7: 03/01/21 06:05 03/01/21 06:05 Labs: Abnormal Lab Results - Last 24 Hours (Table) 03/02/21 03/02/21 03/02/21 Range/Units 02:03 08:24 08:32 PT (9.0-12.0) sec INR (<1.2) D-Dimer (<0.60) mg/L FEU ABG pCO2 32 L (35-45) mmHg ABG pO2 71 L (83-108) mmHg POC Glucose (mg/dL) 121 H 145 H (75-99) mg/dL 03/02/21 Range/Units 09:32 PT >130.0 H (9.0-12.0) sec INR >10.0 H* (<1.2) D-Dimer 31.39 H (<0.60) mg/L FEU ABG pCO2 (35-45) mmHg ABG pO2 (83-108) mmHg POC Glucose (mg/dL) (75-99) mg/dL Microbiology - Last 24 Hours (Table) 02/27/21 09:10 Blood Culture - Preliminary Blood No Growth after 72 hours 02/27/21 09:24 Blood Culture - Preliminary Blood No Growth after 72 hours Assessment and Plan Assessment: Acute hypoxemic respiratory failure secondary to coronavirus associated pneumonia, with worsening oxygenation, and transfer to the ICU on March 02. Paroxysmal atrial fibrillation with RVR. History of coronary artery disease, status post stents. History of hyperlipidemia. History of hypertension. Prior history of myocardial infarction. History of bladder cancer. Plan: Plan dated 02/28/2021. Currently, the patient is ready on vitamin C, vitamin D3, and zinc. The patient's currently also on Coumadin, for his chronic atrial fibrillation. The patient's getting Decadron 6 mg a day. The patient is not a candidate for REM, given the fact that his symptoms in the present for more than 7 days, and his oxygen requirements exceed 6 L. He would be a candidate for [place]. We will continue to follow make recommendations where appropriate. Prognosis is guarded. Hopefully, the patient will not deteriorate. I will go ahead and order an N-terminal proBNP. Plan dated 03/01/2021. The patient remains on vitamin C, vitamin D3, and zinc. In addition, the patient is on Coumadin for his chronic atrial fibrillation. The patient is also getting Decadron 6 mg a day. Clinically, the patient is about the same as he was yesterday. He remains on high flow nasal O2, as well as a nonrebreather mask. Additional recommendations and suggestions are forthcoming. The patient's pro-calcitonin level was normal. No additional recommendations are made. Will continue to follow make recommendations where appropriate. Plan dated 02/28/2021. Yesterday, the patient was seen on the general medical floor. This morning, he developed worsening hypoxemia, the patient was transferred to the intensive care unit. He was placed on BiPAP. We discontinued all benzodiazepines. We place him on AcipHex for sedation. We'll change all oral medications to IV, and also order a d-dimer. Finally, for his elevated PT and INR, he received vitamin K, 10 mg, and prothrombin complex concentrate. We will continue to follow make recommendations were appropriate. Prognosis is guarded. The patient may end up requiring intubation and mechanical ventilation. Time with Patient: Greater than 30
--- NOTE | 2021-03-02 13:53 | P.EN ---
Indication: Hypoxemia Arrived on Scene to find: Patient in moderate respiratory distress, SpO2 50s% on BIPAP 80%, 03/13. Patient seen and examined at bedside. The patient reports feeling short of breath and fatigued. Gen: awake, following commands, agitated Resp: in moderate distress, bilateral crackles CVS: good distal perfusion x 4, RRR, no murmurs Neuro: non-focal, moving all extremities Assessment: Hypoxic respiratory failure secondary to COVID-19 pneumonia Plan: BiPAP increased to 100% FiO2, 03/13 Close monitoring advised with transfer to the ICU, discussed with ICU physician CXR ordered, shows worsening bilateral interstitial infiltrates ABG ordered, but clotted off and will have to be repeated A total of 25 minutes of critical care time was spent by myself in addition to the 25 minutes spent by my colleague earlier this morning.
[2021-03-02 15:33] LABS: Appearance,Urine Clear (Clear); Bacteria,Urine Rare /hpf; Bilirubin,Urine Negative (Negative); Blood,Urine Moderate (Negative); Budding Yeast,Urine Rare /hpf; Color,Urine Yellow; Glucose,Urine (UA) Negative (Negative); Hyphae Yeast, Urine Rare /hpf; Ketones,Urine Negative (Negative); Leukocyte Esterase,Urine Moderate (Negative); Mucus,Urine Rare /hpf; Nitrite,Urine Positive (Negative); Protein,Urine 1+ (Negative); RBC,Urine 34 /hpf (0-5); Specific Gravity,Urine 1.021 (1.001-1.035); Squamous Epithelial Cell,Urine <1 /hpf (0-4); Urobilinogen,Urine <2.0 mg/dL (<2.0); WBC,Urine 49 /hpf (0-5)
--- NOTE | 2021-03-02 16:46 | P.PN ---
Progress Note - Text Progress Note Date: 03/02/21 Chief Complaint: Short of breath This is a pleasant 66-year-old patient of Dr. Peña. 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 Chronic stable medical conditions include hypertension, hyperlipidemia, CAD with stent to LAD in 2016. Bladder cancer that was treated with surgery. Patient presents with 6 days of cough shortness of breath headache. Poor appetite. Tired rundown. Diarrhea that is slightly better. Loss of smell and taste. Chills. Patient has did not receive the vaccine for COVID-19. Admitted with COVID 19 pneumonitis, acute hypoxic respiratory failure, acute kidney injury. Started on oxygen supplement. Dexamethasone. March 02: Patient is very status deteriorated. This morning brought out of the ICU. Put on a BiPAP. 100%. In setting of 03/13. Respiratory rate of 34. Patient is in A. fib controlled. Gentle hydration. Patient rather tired. She also came back to have elevated INR. Given vitamin K and Kcentra Review of systems not been patient rather tired Active Medications Acetaminophen (Acetaminophen Tab 325 Mg Tab) 650 mg PO Q6HR PRN PRN Reason: Mild Pain or Fever > 100.5 Last Admin: 03/01/21 03:07 Dose: 650 mg Documented by: Ascorbic Acid (Ascorbic Acid 500 Mg Tab) 1,000 mg PO DAILY [facility] Last Admin: 03/02/21 08:39 Dose: Not Given Documented by: Carvedilol (Carvedilol 12.5 Mg Tab) 12.5 mg PO BID-W/MEALS [facility] Last Admin: 03/02/21 05:57 Dose: 12.5 mg Documented by: Cholecalciferol (Cholecalciferol 125 Mcg (5000 Iu) Tablet) 125 mcg PO DAILY [facility] Last Admin: 03/02/21 08:39 Dose: Not Given Documented by: Dexamethasone Sodium Phosphate (Dexamethasone Sod Phosphate 10 Mg/Ml 1 Ml Vial) 6 mg IVP DAILY [facility] Last Admin: 03/02/21 09:58 Dose: 6 mg Documented by: Famotidine (Famotidine 20 Mg Tab) 20 mg PO Q12HR [facility] Last Admin: 03/02/21 09:58 Dose: Not Given Documented by: Sodium Chloride (Saline 0.45%) 1,000 mls @ 75 mls/hr IV .[id number] [facility] Last Admin: 03/01/21 23:41 Dose: 75 mls/hr Documented by: Dexmedetomidine HCl 400 mcg/ (IV Solution) 100 mls @ 4.15 mls/hr IV .Q24H [facility]O; Protocol Last Titration: 03/02/21 15:35 Dose: 0.6 mcg/kg/hr, 12.45 mls/hr Documented by: Miscellaneous Information (Warfarin Per Pharmacy) 1 each MISCELLANE DIRECTED PRN; Protocol PRN Reason: Per Protocol Naloxone HCl (Naloxone 0.4 Mg/Ml 1 Ml Vial) 0.2 mg IV Q2M PRN PRN Reason: Opioid Reversal Ondansetron HCl (Ondansetron 4 Mg/2 Ml Vial) 4 mg IVP Q8HR PRN PRN Reason: Nausea And Vomiting Warfarin Sodium (Warfarin 0.5 Mg Tab) 0 mg PO ONCE@1800 ONE Stop: 03/02/21 18:01 Zinc Sulfate (Zinc Sulfate 220 Mg Cap) 220 mg PO DAILY [facility] Last Admin: 03/02/21 08:40 Dose: Not Given Documented by: Past medical history to include: Hyperlipidemia, hypertension, CAD with stent to LAD in 2016, bladder cancer treated with surgery Social history: Patient started smoking 33 years ago. Smoked started age of 13. No alcohol. 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 Family history: CAD, hyperlipidemia Physical examination: VITAL SIGNS: 97.4, 83, 26, 106-87, 93% on BiPAP GENERAL: In reclining in bed, tired, on BiPAP. LUNGS: Respiratory rate increased, PSYCH: Unable to assess very tired. Rest of the exam per pulmonary and nursing INVESTIGATIONS, reviewed in the clinical context: March 02: INR greater than 10 White count 4 hemoglobin 13.9 platelets 190 lymphocytes 0.3 sodium 141 potassium 4.2 and 64 creatinine 1.56 LDH 1378 CRP 5.3 Coronavirus [PCR]: Detected EKG tracing personally reviewed by me-normal sinus rhythm. LVH. Nonspecific T- wave changes. Chest x-ray film: Bilateral infiltrates Assessment and plan: -Acute bilateral COVID 19 pneumonitis and the patient did not receive the vaccine for the same.: Worsening Dexamethasone 6 mg, continue Coumadin, vitamin C vitamin D zinc. Moved to the ICU today. -Acute severe hypoxic respiratory failure from COVID 19 pneumonitis: Worsening. Changed to 2 BiPAP at 100% -Acute medical debility/asthenia from COVID 19. Activity as tolerated. -Clinical dehydration from decreased oral intake IV fluids -Acute kidney injury from decreased oral intake and diarrhea. Suspect prerenal IV fluids. Renal ultrasound. Check UA. Hold Prinivil -Paroxysmal atrial fibrillation, currently rate controlled Telemetry -Coumadin toxicity Stopped. Given vitamin K and Kcentra -CAD with stent to LAD in 2016 Coreg 6.25 by mouth twice a day, aspirin 81 mg daily -Ageusia and anosmia from COVID 19 Patient moved to the ICU. BiPAP. Given vitamin K andKcentra. I spoke to patient's daughter over the phone. They were considering transfer the patient and he from hospital. As per pulmonary opinion and my opinion at this point any transfer will not benefit as nothing different will be offered. She understood the same. Prognosis guarded.
[2021-03-02] MEDS: SODIUM CHLORIDE 0.45% 1,000 ML IV SCH (17:42)
[2021-03-02] MEDS ORDERED: WARFARIN 0.5 MG TAB PO ONE (18:00)
[2021-03-03 00:13] LABS: Glucose,Whole Blood 160 mg/dL (75-99)
[2021-03-03] MEDS: DEXMEDETOMIDINE/0.9% NACL(PMX) 400 MCG in EMPTY BAG 1 BAG IV SCH ×2 (00:31→06:48)
[2021-03-03] MEDS: SODIUM CHLORIDE 0.45% 1,000 ML IV SCH (01:58)
[2021-03-03 05:53] LABS: Basophils % (A) 0 %; Eosinophils % (A) 0 %; HCT 39.5 % (39.0-53.0); HGB 12.9 gm/dL (13.0-17.5); Lymphocytes # (A) 0.2 k/uL (1.0-4.8); Lymphocytes % (A) 1 %; MCH 25.4 pg (25.0-35.0); MCHC 32.5 g/dL (31.0-37.0); Mean Platelet Volume 8.2; Monocytes # (A) 0.2 k/uL (0-1.0); Monocytes % (A) 2 %; Neutrophils % (A) 97 %; Platelet Count 127 k/uL (150-450); RBC 5.07 m/uL (4.30-5.90); RDW 15.3 % (11.5-15.5); WBC 12.4 k/uL (3.8-10.6)
[2021-03-03 06:04] LABS: INR 1.2 (<1.2); Prothrombin Time 12.8 sec (9.0-12.0)
[2021-03-03 06:10] LABS: Calcium 8.3 mg/dL (8.4-10.2); Potassium 4.6 mmol/L (3.5-5.1)
[2021-03-03] MEDS: carvediloL 12.5 MG TAB PO SCH ×2 (07:05→08:56)
--- NOTE | 2021-03-03 08:19 | XR ---
EXAMINATION TYPE: XR chest 1V portable DATE OF EXAM: 03/03/2021 COMPARISON: Chest x-ray 03/02/2021 HISTORY: Covid pneumonia TECHNIQUE: Single frontal view of the chest is obtained. FINDINGS: Bilateral airspace disease is noted, lung volumes low. Cardiomediastinal silhouette is sta ble. No evident pneumothorax or pleural effusion. There is a generator in the left pectoral region, l sherif in the right atrium and ventricle. Patient is rotated. IMPRESSION: Expiratory rotated exam. Cardiomegaly, correlate for pneumonia, edema
[2021-03-03] MEDS: ASCORBIC ACID 500 MG TAB PO SCH ×2 (08:55→10:12)
[2021-03-03] MEDS: CHOLECALCIFEROL 125 MCG (5000 IU) TABLET PO SCH ×2 (08:55→10:12)
[2021-03-03] MEDS: FAMOTIDINE 20 MG TAB PO SCH (08:55)
[2021-03-03] MEDS: ZINC SULFATE 220 MG CAP PO SCH ×2 (08:55→10:12)
[2021-03-03] MEDS: DEXAMETHASONE SOD PHOSPHATE 10 MG/ML 1 ML VIAL IVP SCH (08:55)
[2021-03-03 09:25] VITALS: TEMP 97.8
[2021-03-03] MEDS ORDERED: FAMOTIDINE 20 MG/2 ML VIAL IV SCH (10:15)
[2021-03-03] MEDS ORDERED: HEPARIN SODIUM 1,000 UN/ML (10ML VL) IV PRN (11:04)
[2021-03-03] MEDS ORDERED: HEPARIN SOD,PORK IN 0.45% NACL 25,000 UNIT in 0.45% NACL 1 250ML.BAG IV SCH (11:15)
[2021-03-03 11:17] LABS: ABG Base Excess -2.9 mmol/L; ABG HCO3 21 mmol/L (21-25); ABG Oxygen Saturation 90.3 % (94-97); ABG PCO2 27 mmHg (35-45); ABG PH 7.49 (7.35-7.45); ABG TCO2 21 mmol/L (19-24); Allen Test Performed? Yes
[2021-03-03 11:20] LABS: ABG PO2 54 mmHg (83-108)
[2021-03-03] MEDS ORDERED: CISATRACURIUM 2 MG/ML 5 ML VIAL IV ONE (11:52)
[2021-03-03 11:54] LABS: Glucose,Whole Blood 128 mg/dL (75-99)
[2021-03-03] MEDS ORDERED: propofoL 100 ML IV ONE (11:54)
[2021-03-03] MEDS ORDERED: HYDROmorphone 1 MG/ML 1 ML SYRINGE IVP PRN (12:08)
[2021-03-03] MEDS ORDERED: AMIODARONE 360 MG in DEXTROSE 5% IN WATER 200 ML IV ONE ×2 (12:11)
[2021-03-03] MEDS ORDERED: DEXTROSE 5% IN WATER 100 ML with AMIODARONE 150 MG IV ONE (12:11)
[2021-03-03] MEDS ORDERED: ARTIFICIAL TEARS-HYPROMELLOSE DROPS 15 ML BTL BOTH EYES SCH (12:15)
[2021-03-03] MEDS ORDERED: CISATRACURIUM 200 MG in SODIUM CHLORIDE 0.9% 180 ML IV SCH (12:15)
[2021-03-03] MEDS ORDERED: AMIODARONE IN DEXTROSE,ISO-OSM 150 MG/100 ML PLAST..BAG IV ONE (12:30)
[2021-03-03] MEDS ORDERED: AMIODARONE IN DEXTROSE,ISO-OSM 360 MG/200 ML PLAST..BAG IV ONE (12:30)
--- NOTE | 2021-03-03 12:38 | PCN ---
PROCEDURE NOTE PULMONARY/CRITICAL CARE PROCEDURE NOTES: FIRST PROCEDURE: Placement of right radial arterial line. PREOPERATIVE DIAGNOSIS: Frequent blood draws and blood gas monitoring. POSTOPERATIVE DIAGNOSIS: Frequent blood draws and blood gas monitoring. OPERATORS: 1. Dr. Mtz. 2. Dr. Kirby. PROCEDURE DESCRIPTION: A time-out was completed verifying correct patient, procedure, site, positioning, and implant(s) or special equipment if applicable. There was universale timeout and informed consent. Jacobo's test was performed to ensure adequate perfusion. The patient's right wrist was prepped and draped in sterile fashion. 1% Lidocaine was used to anesthetize the area. An 18G Arrow arterial line was introduced into the right radial artery. The catheter was threaded over the guide wire and the needle was removed with appropriate pulsatile blood return. There was good blood return and waveform. Blood loss was minimal. The catheter was then sutured in place to the skin and a sterile dressing applied by the nurse. Perfusion to the extremity distal to the point of catheter insertion was checked and found to be adequate. The patient tolerated the procedure well and there was not immediate complication. SECOND PROCEDURE: PLACEMENT OF LEFT INTERNAL JUGULAR TRIPLE-LUMEN CATHETER: PREOPERATIVE DIAGNOSIS: Administration of fluids and pressors. POSTOPERATIVE DIAGNOSIS: Administration of fluids and pressors. OPERATORS: 1. Dr. Mtz. 2. Dr. Kirby. PROCEDURE DESCRIPTION: There was informed consent and universal timeout. A time-out was completed verifying correct patient, procedure, site, positioning, and implant(s) or special equipment if applicable. The patient was placed in a dependent position appropriate for triple lumen catheter placement based on the vein to be cannulated. The patient's left neck was prepped and draped in sterile fashion. 1% Lidocaine was used to anesthetize the surrounding skin area. A triple lumen 9F Cordis catheter was introduced into the left internal jugular vein using Seldinger technique and posterior approach. The catheter was threaded smoothly over the guide wire and appropriate blood return was obtained. There was good blood return in all 3 ports. The tip of the catheter was seen in the junction of the superior vena cava and right atrium. Each lumen of the catheter was evacuated of air and flushed with sterile saline. The catheter was then sutured in place to the skin and a sterile dressing applied by the nurse. Perfusion to the extremity distal to the point of catheter insertion was checked and found to be adequate. There was no immediate complication. The patient tolerated the procedure well without any complication. MMODL / IJN: [id number] /
[2021-03-03 12:49] LABS: ABG Base Excess -5.5 mmol/L; ABG HCO3 23 mmol/L (21-25); ABG Oxygen Saturation 94.8 % (94-97); ABG PCO2 62 mmHg (35-45); ABG PO2 97 mmHg (83-108); ABG TCO2 25 mmol/L (19-24)
[2021-03-03 12:51] LABS: ABG PH 7.18 (7.35-7.45); Allen Test Performed? no
[2021-03-03] MEDS ORDERED: SODIUM CHLORIDE 0.9% 1,000 ML IV ONE (12:54)
[2021-03-03] MEDS ORDERED: NOREPINEPHRINE 8 MG in SODIUM CHLORIDE 0.9% 250 ML IV SCH (13:00)
--- NOTE | 2021-03-03 13:12 | XR ---
EXAMINATION TYPE: XR chest 1V portable DATE OF EXAM: 03/03/2021 Comparison: 03/03/21 Clinical History: 66-year-old male ET tube placement and central line placement Findings: ET tube tip 3 cm from the hany, satisfactory. Left CVC tip at the cavoatrial junction. Left anterio r chest wall AICD generator with right atrial and right ventricular leads. Heart remains mildly enlar ged. Diffuse interstitial and patchy opacities show slight improvement. Continued focal right suprahi lar opacity. No appreciable pneumothorax. Impression: Cardiomegaly and diffuse patchy opacities, likely pulmonary edema showing some improvement from prior exam. Focal right suprahilar opacity persists and could represent a more confluent area of edema melissa syed pneumonia.
[2021-03-03 13:38] VITALS: BMI 25.7
[2021-03-03] MEDS ORDERED: SODIUM BICARB 8.4% 50 ML SYR (1 MEQ/ML) ONE (14:30)
[2021-03-03] MEDS ORDERED: EPINEPHrine 10 ML SYRINGE (0.1 MG/ML) ONE (14:30)
[2021-03-03] MEDS ORDERED: ATROPINE SULFATE 0.1 MG/ML 10ML SYRINGE ONE (14:30)
--- NOTE | 2021-03-03 14:42 | P.PN ---
Subjective Progress Note Date: 03/03/21 Principal diagnosis: Shortness of breath. Pulmonary consult dated 02/28/2021. 66-year-old male, who was seen in the emergency department, on February 27, according to 9 in the morning. The patient presented with shortness of breath. The patient has been short of breath for at least 8 days prior to admission. The patient has a history of bladder cancer, coronary disease, hyperlipidemia, and hypertension. In addition to shortness of breath, the patient complains of chest congestion, profound weakness, muscle aches, and loss of taste and smell. Apparently EMS was called and brought the patient in. He apparently was noted to have a low saturation when initially evaluated by the EMS personnel. The patient has not received vaccination against coronavirus. He did test positive. Currently, the patient is on a nonrebreather mask, was 15 L high flow nasal O2. The patient is also getting saline at 100 mL an hour, and a Cardizem drip at 5 mg an hour. Though he is on a lot of oxygen, he appears reasonably stable this time. There is no conversational dyspnea, or use of accessory muscles. White count 4, hemoglobin 13.9, hematocrit 42.2, and platelet count 190,000. D-dimer was 0.34. Sodium 139, potassium 4.8, chlorides 107, CO2 24, anion gap 8, BUN 63, and creatinine 1.30. LDH was 1378. C-reactive protein was 3.7. Calcitonin level was 0.11. Urine had 2+ protein trace ketones moderate blood moderate LE, 102 RBCs 47 WBCs but there were no bacteria. Testing for coronavirus on the was positive. Chest x-ray showed diffuse bilateral infiltrates. EKG showed evidence of atrial fibrillation. Progress note dated 03/01/2021. 66-year-old male initially seen in the emergency department on February 27, for complaints of increasing shortness of breath. The patient has a history of bladder cancer, coronary disease, hyperlipidemia and hypertension. The patient was tested for coronavirus and was found to be positive on the . Currently, he's on 15 L high flow nasal cannula, and a nonrebreather mask. His blood pressure is 125/71 with a mean of 89. His heart rate 60 and his respiratory rate 19-20 breaths per minute. White count 9, hemoglobin 12.7, hematocrit 39.1, and platelet count normal. PT 30.2 with an INR 3.1. Sodium 140, potassium 3.9, chlorides 108, CO2 22, anion gap 10, BUN 56, and creatinine 1.19. Pro- calcitonin level was 0.07. Progress note dated 03/02/2021. 66-year-old male initially seen in the emergency department on February 27. He was seen on the floor yesterday, and apparently this morning, had an episode of worsening hypoxemic respiratory failure. He apparently was pulling off his BiPAP device, and we decided to transfer him to the intensive care unit. Currently, he is on BiPAP at 12/6 and 100%. He is also on saline at 75 mL an hour. A blood gas shows a pO2 of 71, pCO2 32, and a pH is 7.45. The patient will be placed on Precedex for sedation, and we will change any oral medications to IV. We'll check a d-dimer. In addition, we will discontinue all benzodiazepines. PTT is greater than 130, INR is greater than 10, and d-dimer is 31.39. We will give the patient some for factor prothrombin concentrate, as well as vitamin K. Chest x-ray shows bilateral multifocal opacities, which have worsened. Lung volumes are low. There is also cardiomegaly. Progress note dated 03/03/2021. 66-year-old male, who was transferred down to the intensive care unit. He is seen in room 253. Currently, he's on BiPAP at 12/6 and 90%. The patient's also receiving half normal saline at 75 mL an hour, and Precedex, for agitation 0.8 mcg/kg/h. The patient had a blood gas showing a pO2 of 54, pCO2 27, and a pH is 7.48. The patient's respiratory status has clearly declined, and a decision was made to go ahead and intubate the patient. In addition, a central line was placed as well as an arterial line. We are going to DC all oral medications. The patient is started on IV heparin for chronic atrial fibrillation. White count 12.4, hemoglobin 12.9, hematocrit 39.5, count 127,000. PT was 12.8 with an INR 1.2. Repeat blood gases show a PaO2 of 97, pCO2 of 62, and a pH is 7.18. This is after intubation. The rate was increased, as well as the PEEP. Sodium 139, potassium 4.6, chlorides 113, CO2 20, anion gap 6, BUN 41, and creatinine 1.01. Chest x-ray after the central line was placed shows cardiomegaly, and diffuse bilateral opacities and infiltrates. There was no pneumothorax. Objective - Vital Signs Vital signs: Vital Signs Temp 97.8 F 03/03/21 08:00 Pulse 111 H 03/03/21 11:00 Resp 41 H 03/03/21 11:00 BP 123/96 03/03/21 11:00 Pulse Ox 92 L 03/03/21 11:00 Intake & Output 03/02/21 03/03/21 03/03/21 18:59 06:59 18:59 Intake Total 653.066 7291.959 1527.891 Output Total 570 635 285 Balance 250.066 619.706 6669.891 Weight 82.8 kg 81.5 kg 81.5 kg Intake: IV 786 257 2817 Sodium Chloride 0.45% 1, 430 692 3658 000 ml @ 75 mls/hr IV . [id number] ARMANDO Rx#:[id number] Intake, IV Titration 70.066 175.959 2.891 Amount Dexmedetomidine/0.9% NaCl 70.066 175.959 (Pmx) 400 mcg In Empty Bag 1 bag @ 0.2 MCG/KG/HR 4.15 mls/hr IV .Q24H ARMANDO Rx#:[id number] Norepinephrine 8 mg In 2.891 Sodium Chloride 0.9% 250 ml @ 0.05 MCG/KG/MIN 7. 885 mls/hr IV .Q24H ARMANDO Rx#:[id number] Output: Urine 570 635 285 Other: Voiding Method Indwelling Catheter Indwelling Catheter Indwelling Catheter # Voids 1 - Exam Currently sedated and paralyzed now on the mechanical ventilator, with an orally placed endotracheal tube and NG tube. HEENT examination is grossly unremarkable. Neck supple. Full range of motion. No adenopathy thyromegaly or neck vein distention. Cardiovascular examination reveals an irregular rhythm and rate. S1-S2 normal. No S3 or S4. No discernible murmur noted. Heart sounds are distant. Heart rate 111 bpm. Lungs reveal bilateral coarse rhonchi. Crackles at the bases. No wheezes. Breath sounds equal bilaterally. Saturations are in the low 90s. Abdomen soft bowel sounds are heard. No masses or tenderness. Extremities are intact. No cyanosis clubbing or edema. Skin is without rash or lesion. Neurologic examination cannot be assessed as the patient was sedated and para lyzed. - Labs CBC & Chem 7: 03/03/21 04:59 03/03/21 04:59 Labs: Abnormal Lab Results - Last 24 Hours (Table) 03/02/21 03/03/21 03/03/21 Range/Units 14:50 00:12 04:59 WBC (3.8-10.6) k/uL Hgb (13.0-17.5) gm/dL MCV (80.0-100.0) fL Plt Count (150-450) k/uL Neutrophils # (1.3-7.7) k/uL Lymphocytes # (1.0-4.8) k/uL PT 12.8 H (9.0-12.0) sec INR 1.2 H (<1.2) ABG pH (7.35-7.45) ABG pCO2 (35-45) mmHg ABG pO2 (83-108) mmHg ABG Total CO2 (19-24) mmol/L ABG O2 Saturation (94-97) % Chloride (98-107) mmol/L Carbon Dioxide (22-30) mmol/L BUN (9-20) mg/dL Glucose (74-99) mg/dL POC Glucose (mg/dL) 160 H (75-99) mg/dL Calcium (8.4-10.2) mg/dL Urine Protein 1+ H (Negative) Urine Blood Moderate H (Negative) Ur Leukocyte Esterase Moderate H (Negative) Urine RBC 34 H (0-5) /hpf Urine WBC 49 H (0-5) /hpf Urine Bacteria Rare H (None) /hpf Urine Mucus Rare H (None) /hpf Urine Yeast (Budding) Rare H (None) /hpf 03/03/21 03/03/21 03/03/21 Range/Units 04:59 04:59 11:15 WBC 12.4 H (3.8-10.6) k/uL Hgb 12.9 L (13.0-17.5) gm/dL MCV 78.0 L (80.0-100.0) fL Plt Count 127 L (150-450) k/uL Neutrophils # 12.0 H (1.3-7.7) k/uL Lymphocytes # 0.2 L (1.0-4.8) k/uL PT (9.0-12.0) sec INR (<1.2) ABG pH 7.49 H (7.35-7.45) ABG pCO2 27 L (35-45) mmHg ABG pO2 54 L* (83-108) mmHg ABG Total CO2 (19-24) mmol/L ABG O2 Saturation 90.3 L (94-97) % Chloride 113 H (98-107) mmol/L Carbon Dioxide 20 L (22-30) mmol/L BUN 41 H (9-20) mg/dL Glucose 142 H (74-99) mg/dL POC Glucose (mg/dL) (75-99) mg/dL Calcium 8.3 L (8.4-10.2) mg/dL Urine Protein (Negative) Urine Blood (Negative) Ur Leukocyte Esterase (Negative) Urine RBC (0-5) /hpf Urine WBC (0-5) /hpf Urine Bacteria (None) /hpf Urine Mucus (None) /hpf Urine Yeast (Budding) (None) /hpf 03/03/21 03/03/21 Range/Units 11:53 12:47 WBC (3.8-10.6) k/uL Hgb (13.0-17.5) gm/dL MCV (80.0-100.0) fL Plt Count (150-450) k/uL Neutrophils # (1.3-7.7) k/uL Lymphocytes # (1.0-4.8) k/uL PT (9.0-12.0) sec INR (<1.2) ABG pH 7.18 L* (7.35-7.45) ABG pCO2 62 H (35-45) mmHg ABG pO2 (83-108) mmHg ABG Total CO2 25 H (19-24) mmol/L ABG O2 Saturation (94-97) % Chloride (98-107) mmol/L Carbon Dioxide (22-30) mmol/L BUN (9-20) mg/dL Glucose (74-99) mg/dL POC Glucose (mg/dL) 128 H (75-99) mg/dL Calcium (8.4-10.2) mg/dL Urine Protein (Negative) Urine Blood (Negative) Ur Leukocyte Esterase (Negative) Urine RBC (0-5) /hpf Urine WBC (0-5) /hpf Urine Bacteria (None) /hpf Urine Mucus (None) /hpf Urine Yeast (Budding) (None) /hpf Microbiology - Last 24 Hours (Table) 02/27/21 09:10 Blood Culture - Preliminary Blood No Growth after 96 hours 02/27/21 09:24 Blood Culture - Preliminary Blood No Growth after 96 hours 03/02/21 14:50 Urine Culture - Preliminary Urine,Clean Catch Assessment and Plan Assessment: Acute hypoxemic respiratory failure secondary to coronavirus associated pneumonia, with worsening oxygenation, and transfer to the ICU on March 02, status post intubation with mechanical ventilation on March 03. Paroxysmal atrial fibrillation with RVR. History of coronary artery disease, status post stents. History of hyperlipidemia. History of hypertension. Prior history of myocardial infarction. History of bladder cancer. Plan: Plan dated 02/28/2021. Currently, the patient is ready on vitamin C, vitamin D3, and zinc. The patient's currently also on Coumadin, for his chronic atrial fibrillation. The patient's getting Decadron 6 mg a day. The patient is not a candidate for REM, given the fact that his symptoms in the present for more than 7 days, and his oxygen requirements exceed 6 L. He would be a candidate for [facility]. We will continue to follow make recommendations where appropriate. Prognosis is guarded. Hopefully, the patient will not deteriorate. I will go ahead and or herbert an N-terminal proBNP. Plan dated 03/01/2021. The patient remains on vitamin C, vitamin D3, and zinc. In addition, the patient is on Coumadin for his chronic atrial fibrillation. The patient is also getting Decadron 6 mg a day. Clinically, the patient is about the same as he was yesterday. He remains on high flow nasal O2, as well as a nonrebreather mask. Additional recommendations and suggestions are forthcoming. The patient's pro-calcitonin level was normal. No additional recommendations are made. Will continue to follow make recommendations where appropriate. Plan dated 02/28/2021. Yesterday, the patient was seen on the general medical floor. This morning, he developed worsening hypoxemia, the patient was transferred to the intensive care unit. He was placed on BiPAP. We discontinued all benzodiazepines. We place him on AcipHex for sedation. We'll change all oral medications to IV, and also order a d-dimer. Finally, for his elevated PT and INR, he received vitamin K, 10 mg, and prothrombin complex concentrate. We will continue to follow make recommendations were appropriate. Prognosis is guarded. The patient may end up requiring intubation and mechanical ventilation. Plan dated 03/03/2021. The patient was moved to the intensive care unit, and this morning, he was intubated for impending respiratory failure. The patient was on BiPAP at 12/6 and 90%. His blood gases showed a pO2 of 54, pCO2 27, and pH is 7.48. The patient was on half-normal saline at 75 mL an hour, and also Precedex at 0.8 mcg/kg/h. Once in the ICU, and after intubation, the patient developed atrial fibrillation with a rapid ventricular response. He was given amiodarone IV. Also, the patient was sedated and paralyzed. His overall prognosis remains fair a poor. The patient was placed on IV heparin for his atrial fibrillation. Arterial blood gases were ordered. Additional recommendations and suggestions are forthcoming. Time with Patient: Greater than 30
--- NOTE | 2021-03-03 14:54 | P.EN ---
CODE BLUE Indication: PEA arrest Arrived on Scene to find: CPR in Progress Initial Rhythm: PEA arrest Code Course: Cherriee darrius called patient in PEA arrest. He received epi X 4, Bicarb X 2, Went into fine v fib and shocked X 1 with return to PEA. Time of 1441. For further detail see code blue record. Absent respiration, absent pulse, Pupils fixed and dilated, paced on the monitor. Disposition: Notified: Dr. Yusuf Mtz A Total of 25 minutes of critical care time was spent on the complex care of this patient.
--- NOTE | 2021-03-03 15:07 | P.PN ---
Progress Note - Text Progress Note Date: 03/03/21 Chief Complaint: Short of breath This is a pleasant 66-year-old patient of Dr. Peña. 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 Chronic stable medical conditions include hypertension, hyperlipidemia, CAD with stent to LAD in 2016. Bladder cancer that was treated with surgery. Patient presents with 6 days of cough shortness of breath headache. Poor appetite. Tired rundown. Diarrhea that is slightly better. Loss of smell and taste. Chills. Patient has did not receive the vaccine for COVID-19. Admitted with COVID 19 pneumonitis, acute hypoxic respiratory failure, acute kidney injury. Started on oxygen supplement. Dexamethasone. March 02: Patient is very status deteriorated. This morning brought out of the ICU. Put on a BiPAP. 100%. In setting of 03/13. Respiratory rate of 34. Patient is in A. fib controlled. Gentle hydration. Patient rather tired. She also came back to have elevated INR. Given vitamin K and Kcentra March 03: ICU: Intubated. FiO2 100/PEEP of 15. Telemetry atrial fibrillation. Patient drips included propofol, Nimbex, IV amiodarone, levo fed. Patient seen by cardiology and pulmonary. Patient sedated Review of systems : Patient intubated Active Medications Reviewed in today's current electronic records Past medical history to include: Hyperlipidemia, hypertension, CAD with stent to LAD in 2016, bladder cancer treated with surgery Social history: Patient started smoking 33 years ago. Smoked started age of 13. No alcohol. 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 Family history: CAD, hyperlipidemia Physical examination: VITAL SIGNS: 11, 41, 123.96, 92% GENERAL: In reclining in bed, intubated LUNGS: Respiratory rate increased, PSYCH: Unable to assess: Intubated Rest of the exam per pulmonary and nursing INVESTIGATIONS, reviewed in the clinical context: March 03: WBC 12.4 hemoglobin 12.9 platelets 127 ABG pH 7.49 pO2 54 potassium 4.6 BUN 4181.01 March 02: INR greater than 10 White count 4 hemoglobin 13.9 platelets 190 lymphocytes 0.3 sodium 141 potassium 4.2 and 64 creatinine 1.56 LDH 1378 CRP 5.3 Coronavirus [PCR]: Detected EKG tracing personally reviewed by me-normal sinus rhythm. LVH. Nonspecific T- wave changes. Chest x-ray film: Bilateral infiltrates Assessment and plan: -Acute bilateral COVID 19 pneumonitis and the patient did not receive the vaccine for the same.: Worsening Dexamethasone 6 mg, Coumadin discontinued because of toxicity, vitamin C vitamin D zinc. -Acute severe hypoxic respiratory failure from COVID 19 pneumonitis: Worsening. Changed to 2 BiPAP at 100% -Acute medical debility/asthenia from COVID 19. Bedrest -Clinical dehydration from decreased oral intake IV fluids -Acute kidney injury from decreased oral intake and diarrhea. Prerenal: Better IV fluids. -Paroxysmal atrial fibrillation, currently rate controlled Telemetry -Coumadin toxicity Stopped. Given vitamin K and Kcentra -CAD with stent to LAD in 2016 Coreg 6.25 by mouth twice a day, aspirin 81 mg daily -Ageusia and anosmia from COVID 19 Patient intubated earlier today. Drips included propofol, Nimbex, IV amiodarone, levo fed. IV heparin has been ordered. Prognosis guarded.
--- NOTE | 2021-03-03 15:11 | P.DS ---
Providers Date of admission: 02/27/21 11:37 Expected date of discharge: 03/03/21 Attending physician: Renzo Goldberg Consults: 02/27/21 11:15 Consult Physician Urgent Consulting Provider: Jason Mtz Consult Reason/Comments: covid, hypoxic Do you want consulting provider notified?: Yes 02/28/21 09:47 Consult Physician Urgent Consulting Provider: Matthew Quintana Consult Reason/Comments: afib RVR Do you want consulting provider notified?: Already Contacted Primary care physician: [facility] Course: Chief Complaint: Short of breath This is a pleasant 66-year-old patient of Dr. Peña. 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 Chronic stable medical conditions include hypertension, hyperlipidemia, CAD with stent to LAD in 2016. Bladder cancer that was treated with surgery. Patient presents with 6 days of cough shortness of breath headache. Poor appetite. Tired rundown. Diarrhea that is slightly better. Loss of smell and taste. Chills. Patient has did not receive the vaccine for COVID-19. Admitted with COVID 19 pneumonitis, acute hypoxic respiratory failure, acute kidney injury. Started on oxygen supplement. Dexamethasone. March 02: Patient is very status deteriorated. This morning brought out of the ICU. Put on a BiPAP. 100%. In setting of 03/13. Respiratory rate of 34. Patient is in A. fib controlled. Gentle hydration. Patient rather tired. She also came back to have elevated INR. Given vitamin K and Kcentra March 03: ICU: Intubated. FiO2 100/PEEP of 15. Telemetry atrial fibrillation. Patient drips included propofol, Nimbex, IV amiodarone, levo fed. Patient seen by cardiology and pulmonary. Patient sedated Later today coronary arrest was called. Patient had variable rhythms. Unsuccessful resuscitation. Patient . I called patient daughter Dominique Powell and informed her of the same. Consultation: Dr. Mtz [facility] Past medical history to include: Hyperlipidemia, hypertension, CAD with stent to LAD in 2016, bladder cancer treated with surgery Social history: Stopped smoking 33 years ago. Smoked started age of 13. No alcohol. 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 LVH. Nonspecific T- wave changes. Chest x-ray film: Bilateral infiltrates Cause of : COVID 19 pneumonitis Assessment and plan: -Acute bilateral COVID 19 pneumonitis and the patient did not receive the vaccine for the same.: Worsening Dexamethasone 6 mg, Coumadin discontinued because of toxicity, vitamin C vitamin D zinc. -Acute severe hypoxic respiratory failure from COVID 19 pneumonitis: Worsening. Changed to 2 BiPAP at 100% -Acute medical debility/asthenia from COVID 19. Bedrest -Clinical dehydration from decreased oral intake IV fluids -Acute kidney injury from decreased oral intake and diarrhea. Prerenal: Better IV fluids. -Paroxysmal atrial fibrillation, currently rate controlled Telemetry -Coumadin toxicity Stopped. Given vitamin K and Kcentra -CAD with stent to LAD in 2015 Coreg 6.25 by mouth twice a day, aspirin 81 mg daily -Ageusia and anosmia from COVID 19 Disposition: Patient Plan - Discharge Summary New Discharge Prescriptions: No Action Multivitamins, Thera [Multivitamin (formulary)] 1 tab PO DAILY Lisinopril [Prinivil] 10 mg PO DAILY Aspirin EC [Ecotrin Low Dose] 81 mg PO DAILY Ascorbic Acid [Vitamin C] 1,000 mg PO DAILY Zinc 50 mg PO DAILY Warfarin [Coumadin] 2.5 mg PO HS Cholecalciferol [Vitamin D3 (125 Mcg = 5000 Iu)] 125 mcg PO DAILY Carvedilol [Coreg] 12.5 mg PO BID Discharge Medication List Ascorbic Acid [Vitamin C] 1,000 mg PO DAILY 02/27/21 [History] Aspirin EC [Ecotrin Low Dose] 81 mg PO DAILY 02/27/21 [History] Carvedilol [Coreg] 12.5 mg PO BID 02/27/21 [History] Cholecalciferol [Vitamin D3 (125 Mcg = 5000 Iu)] 125 mcg PO DAILY 02/27/21 [History] Lisinopril [Prinivil] 10 mg PO DAILY 02/27/21 [History] Multivitamins, Thera [Multivitamin (formulary)] 1 tab PO DAILY 02/27/21 [History] Warfarin [Coumadin] 2.5 mg PO HS 02/27/21 [History] Zinc 50 mg PO DAILY 02/27/21 [History] Follow up Appointment(s)/Referral(s): Shai Peña MD [Primary Care Provider] - 1-2 days Chencho Cruz MD [STAFF PHYSICIAN] - 4 Weeks
[2021-03-03 17:12] VITALS: BP 85/51; PULSE 108; RESP 0
[2021-03-03] MEDS ORDERED: AMIODARONE 450 MG in DEXTROSE 5% IN WATER 250 ML IV SCH ×2 (18:15)
== END 2021-03-03 17:27 | disposition expired | DRG 208 ==
LOC: EC 08:45 → 3SCARD 11:37 → 2SICU 03-02 08:19
PROVIDERS: ADMIT Hospitalist; ATTEND Hospitalist
PROC: 3E0333Z Introduction of Anti-inflammatory into Peripheral Vein, Percutaneous Approach (ICD-10-PCS; 2021-02-27)
PROC: 5A0945A Assistance with Respiratory Ventilation, 24-96 Consecutive Hours, High Flow/Velocity Cannula (ICD-10-PCS; 2021-02-27)
PROC: 5A09457 Assistance with Respiratory Ventilation, 24-96 Consecutive Hours, Continuous Positive Airway Pressure (ICD-10-PCS; 2021-03-02)
PROC: 5A1935Z Respiratory Ventilation, Less than 24 Consecutive Hours (ICD-10-PCS; principal; 2021-03-03)
PROC: 03HY32Z Insertion of Monitoring Device into Upper Artery, Percutaneous Approach (ICD-10-PCS; 2021-03-03)
PROC: 4A133B1 Monitoring of Arterial Pressure, Peripheral, Percutaneous Approach (ICD-10-PCS; 2021-03-03)
PROC: 4A133J1 Monitoring of Arterial Pulse, Peripheral, Percutaneous Approach (ICD-10-PCS; 2021-03-03)
PROC: 5A12012 Performance of Cardiac Output, Single, Manual (ICD-10-PCS; 2021-03-03)
PROC: 0BH17EZ Insertion of Endotracheal Airway into Trachea, Via Natural or Artificial Opening (ICD-10-PCS; 2021-03-03)
DX: U07.1 COVID-19 (principal); J12.82 Pneumonia due to coronavirus disease 2019; J96.01 Acute respiratory failure with hypoxia; N13.2 Hydronephrosis with renal and ureteral calculous obstruction; N17.9 Acute kidney failure, unspecified; Z85.51 Personal history of malignant neoplasm of bladder; E78.5 Hyperlipidemia, unspecified; E86.0 Dehydration; I25.10 Atherosclerotic heart disease of native coronary artery without angina pectoris; I11.9 Hypertensive heart disease without heart failure; I25.2 Old myocardial infarction; I25.5 Ischemic cardiomyopathy; I46.9 Cardiac arrest, cause unspecified; I48.0 Paroxysmal atrial fibrillation; I49.01 Ventricular fibrillation; R79.1 Abnormal coagulation profile; T45.515A Adverse effect of anticoagulants, initial encounter; Z79.01 Long term (current) use of anticoagulants; Z79.82 Long term (current) use of aspirin; Z79.899 Other long term (current) drug therapy; Z82.49 Family history of ischemic heart disease and other diseases of the circulatory system; Z87.81 Personal history of (healed) traumatic fracture; Z87.891 Personal history of nicotine dependence; Z95.5 Presence of coronary angioplasty implant and graft; Z95.810 Presence of automatic (implantable) cardiac defibrillator; R43.0 Anosmia; R43.2 Parageusia
CPT/HCPCS: 36415; 36600; 71045; 76770; 80048; 80053; 81001; 82728; 82805; 83605; 83615; 83735; 83880; 84145; 84443; 85025; 85379; 85610; 85730; 86140; 87040; 87086; 87635; 93005; 94002; 94660; 94760; 96374; 99291